=== PATIENT | female | born 1975 | race Two or more races ===

== ENCOUNTER 2020-08-27 13:28 | Outpatient (REF) | payer OTHER, SELFPAY ==
--- NOTE | ~2020-08-27 | XR_ITS ---
EXAMINATION: XR SHOULDER, RIGHT CLINICAL INFORMATION: Mononeuropathy. COMPARISON: None TECHNIQUE: AP external rotation, Grashey, scapular Y, and axillary views of the right shoulder. FINDINGS: The bones and soft tissues are normal. No fracture. Glenohumeral and acromioclavicular alignment is anatomic with normal joint space. No abnormal soft tissue calcifications. XR/XR shoulder RT min 2V IMPRESSION: Unremarkable right shoulder.
[2020-08-27 14:06] LABS: Hematocrit 37.1 % (37-47); Hemoglobin 12.6 g/dl (12.0-16.0); Mean Corpuscular Hemoglobin 30.7 pg (27.0-33.0); Mean Corpuscular Volume 90.5 fL (80-98); Mean Platelet Volume 10.9 fL (9.4-12.3); Platelet Count 333 X10*3/uL (160-400); Red Cell Distribution Width 12.7 % (11.0-16.0); White Blood Count 7.6 X10*3/uL (4.8-10.8)
[2020-08-27 14:50] LABS: Thyroid Stimulating Hormone 0.88 uIU/mL (0.32-4.0)
[2020-08-27 15:08] LABS: Erythrocyte Sedimentation Rate 23 MM/HR (0-20)
[2020-08-27 15:10] LABS: Anion Gap 13 (12-20); Blood Urea Nitrogen 12 mg/dL (9-16); Calcium 8.7 mg/dL (8.4-10.2); Carbon Dioxide 25 mmol/L (22-29); Chloride 105 mmol/L (96-108); Estimated Glomerular Filt Rate > 60; Glucose Random 86 mg/dL (60-115); Sodium 139 mmol/L (135-145)
[2020-09-01 13:22] LABS: Vitamin D 25-OH, D2 <4 ng/mL; Vitamin D 25-OH, D3 46 ng/mL; Vitamin D 25-OH, Total 46 ng/mL (30-100)
== END 2020-08-27 13:29 | disposition home or self-care (01) ==
LOC: HO.LAB 13:28
PROVIDERS: PCP Internal Medicine; Visit Provider Internal Medicine
DX: G58.9 Mononeuropathy, unspecified (principal)
CPT/HCPCS: 36415; 73030; 80048; 82306; 84443; 85027; 85652

== ENCOUNTER → 2020-09-11 13:25 | Outpatient (BNVA) | payer OTHER, SELFPAY | PROVIDERS: PCP Internal Medicine; Visit Provider Physician Assistant | DX: M75.51 Bursitis of right shoulder (principal) | CPT/HCPCS: 20610; J1020 ==

== ENCOUNTER 2020-09-30 18:52 | Outpatient (REF) | payer OTHER, SELFPAY ==
--- NOTE | ~2020-09-30 | MR_ITS ---
EXAMINATION: MR SHOULDER WITHOUT CONTRAST, RIGHT CLINICAL INFORMATION: Right shoulder pain COMPARISON: Radiographs 08/27/2020 TECHNIQUE: MRI of the shoulder without contrast was performed on a high-field scanner. FINDINGS: ROTATOR CUFF: Intact. Subscapularis tendinosis. No muscle atrophy or fatty infiltration. BICEPS: Normal. CORACOACROMIAL ARCH: The undersurface of the acromion is curved with mild spurring laterally. The acromioclavicular joint is normal. LABRUM/CAPSULE: No definite labral tear. The inferior joint capsule is edematous with areas of mild thickening. There is also ill-defined thickening/edema at the rotator cuff interval. These findings suggest adhesive capsulitis. GLENOHUMERAL JOINT/MARROW: Trace glenohumeral joint effusion. MR/MR shoulder RT wo con IMPRESSION: Findings suggestive of adhesive capsulitis. Correlate clinically. No rotator cuff tear. Mild subscapularis tendinosis.
== END 2020-09-30 18:53 | disposition home or self-care (01) ==
LOC: HO.MRI 18:52
PROVIDERS: Visit Provider Physician Assistant
DX: M75.51 Bursitis of right shoulder (principal)
CPT/HCPCS: 73221

== ENCOUNTER → 2020-10-16 14:00 | Outpatient (BNVA) | payer OTHER, SELFPAY | PROVIDERS: PCP Internal Medicine; Visit Provider Physician Assistant ==

== ENCOUNTER 2020-10-24 12:59 | Outpatient (REF) | payer OTHER, SELFPAY ==
--- NOTE | ~2020-10-24 | FL_ITS ---
EXAMINATION: XR ARTHROGRAM SHOULDER, RIGHT CLINICAL INFORMATION: Adhesive capsulitis of right shoulder. Severe right shoulder pain. COMPARISON: None TECHNIQUE: Following explaining right shoulder steroid injection under fluoroscopy procedure, benefits and risk, a written consent was obtained. Patient was placed supine on fluoroscopy table, and anterior aspect of shoulder was cleaned and draped in usual sterile manner. 1% lidocaine was injected at puncture site. A 22-gauge spinal needle was then inserted from the skin into the anterior shoulder joint and 2 mL of nonionic contrast was injected. After confirming contrast in the joint space, 80 mL of Depo-Medrol, 4 mL of 1% lidocaine and 4 mL of 0.25% bupivacaine was injected into the joint space and needle withdrawn. Complete hemostasis achieved at puncture site. Patient tolerated procedure very well without immediate complications. A single image was obtained during exam. FINDINGS: On image obtained of the right shoulder reveals contrast opacifying the glenohumeral joint space. The joint space is maintained normal. No bony erosive changes, loose bodies or fracture seen. FLUOROSCOPY TIME: 0.6 minutes DOSE AREA PRODUCT: 1.255 uGy-m2 (microgray-meter squared) FL/FL arthrogram shoulder RT IMPRESSION: Successful fluoroscopy-guided right shoulder steroid injection performed without immediate complications.
== END 2020-10-24 13:00 | disposition home or self-care (01) ==
LOC: HO.XRAY 12:59
PROVIDERS: Visit Provider Physician Assistant
DX: M75.01 Adhesive capsulitis of right shoulder (principal)
CPT/HCPCS: 23350; 73040

== ENCOUNTER 2020-11-05 13:21 | Outpatient (REF) | payer OTHER, SELFPAY ==
--- NOTE | ~2020-11-05 | XR_ITS ---
EXAMINATION: XR SINUSES CLINICAL INFORMATION: Right-sided facial pain COMPARISON: None TECHNIQUE: 4 views of the paranasal sinuses. FINDINGS: Paranasal sinuses appear clear without air-fluid levels. No fractures are identified. No radiodense foreign bodies. No destructive bony lesions identified. Visualized portions of the mastoid air cells unremarkable. XR/XR sinus min 3V IMPRESSION: No evidence of acute sinusitis.
== END 2020-11-05 13:22 | disposition home or self-care (01) ==
LOC: HO.XRAY 13:21
PROVIDERS: PCP Internal Medicine; Visit Provider Otolaryngology
DX: J32.9 Chronic sinusitis, unspecified (principal)
CPT/HCPCS: 70220

== ENCOUNTER 2020-12-06 12:00 | Outpatient (RCR) | payer OTHER, SELFPAY ==
--- NOTE | 2020-12-06 13:06 | MHC.PT.DC ---
[facility] Office [place] Office [place] Office [address] [phone] F: [phone] F: [phone] F: [phone] F: [phone] Physical Therapy Discharge Report Diagnosis: Mononeuropathy, R shoulder bursitis Date of Surgery: NA Date of Evaluation: 08/20/20 Date of Discharge: 12/06/20 Treatments to Date: 8 Cancellations to Date: 3 No Shows to Date: 0 Discharge Status: Improved Function Independent with HEP Patient Elected to Stop Discharge Summary: 12/06/2020 Emelina has completed 8 visits of PT. She has made improvements with PT but continues to have pain and end range limitations of motion. Due to this patient will follow up with her ortho Dr next week to consider other options. Emelina was offered to continue PT for a few more visits to continue ROM, but she decided she is independent with her HEP and can do her exercises at her gym. Today was Emelina's last visit. Electronically signed by: Camila Hussein, PT, DPT Please sign and return to therapist. Thank you for your referral.
== END 2020-12-06 13:08 | disposition other institution (70) ==
LOC: HO.PT 12:00
PROVIDERS: PCP Internal Medicine; Visit Provider Internal Medicine
DX: G58.9 Mononeuropathy, unspecified (principal)
CPT/HCPCS: 97110; 97112; 97140; 97161

== ENCOUNTER → 2020-12-11 14:32 | Outpatient (BNVA) | payer OTHER, SELFPAY | PROVIDERS: PCP Internal Medicine; Visit Provider Physician Assistant ==

== ENCOUNTER → 2021-03-06 09:39 | Outpatient (BNVA) | payer OTHER, SELFPAY | PROVIDERS: PCP Internal Medicine; Visit Provider Physician Assistant ==

== ENCOUNTER 2021-03-24 16:31 | Outpatient (REF) | payer OTHER, SELFPAY ==
--- NOTE | ~2021-03-24 | MR_ITS ---
EXAMINATION: MR CERVICAL SPINE WITHOUT CONTRAST CLINICAL INFORMATION: Monitor neuropathy, unspecified. COMPARISON: None available. TECHNIQUE: MRI of the cervical spine was performed using routine sequences without contrast. FINDINGS: The cervical vertebral bodies maintain normal heights. There is mild disc height loss at C5-C6 and C6-C7. Endplate edema is seen superiorly at C7. The cervical cord signal appears normal. A few bilateral perineural cysts are noted. The imaged portions of the intracranial contents appear normal. The extraspinal soft tissues appear normal. SPINAL LEVELS: C2-C3: No posterior disc abnormality. No spinal canal or neural foraminal stenosis. C3-C4: Mild disc bulging. No spinal canal or neural foraminal stenosis. C4-C5: Mild disc bulging. No spinal canal or neural foraminal stenosis. C5-C6: Disc bulging asymmetric to the left with uncovertebral hypertrophy. Mild narrowing of the left neural foramen. No spinal canal stenosis. C6-C7: Disc bulging. No spinal canal or neural foraminal stenosis. C7-T1: No posterior disc abnormality. No spinal canal or neural foraminal stenosis. MR/MR cervical spine wo con IMPRESSION: Mild degenerative spondylotic changes. No significant narrowing of the spinal canal or neural foramina. Endplate edema is seen superiorly at C7.
== END 2021-03-24 16:32 | disposition home or self-care (01) ==
LOC: HO.MRI 16:31
PROVIDERS: PCP Internal Medicine; Visit Provider Physician Assistant
DX: G58.9 Mononeuropathy, unspecified (principal)
CPT/HCPCS: 72141

== ENCOUNTER 2021-05-05 14:37 | Outpatient (REF) | payer OTHER, SELFPAY ==
--- NOTE | ~2021-05-05 | MM_ITS ---
EXAMINATION: MM SCREENING DIGITAL BREAST TOMOSYNTHESIS, BILATERAL CLINICAL INFORMATION: Screening. Asymptomatic. Age 45. No prior breast imaging. The lifetime risk of breast cancer based on the Tyrer-Cuzick Model is 18%. COMPARISON: None (current study represents initial baseline exam). TECHNIQUE: Digital breast tomosynthesis is performed in both the craniocaudal and mediolateral oblique views along with computer-aided detection (CAD). Synthesized 2D images are generated from the tomosynthesis. Technologist notes compression challenging for patient. Exam tailored to patient capabilities. Additional bilateral exaggerated CC views are obtained. FINDINGS: The breasts are extremely dense, which lowers the sensitivity of mammography (ACR BI-RADS breast composition Category d). There are no significant masses, abnormal calcifications, or other abnormalities. The axilla and skin contours are unremarkable. MM/MM tomosynthesis screening BI IMPRESSION: No mammographic evidence of malignancy. ASSESSMENT: BI-RADS 1: Negative RECOMMENDATION: Routine annual mammography screening. This patient's information was entered into a reminder system with a target due date for their next mammogram.
== END 2021-05-05 14:38 | disposition home or self-care (01) ==
LOC: HO.MAMMO 14:37
PROVIDERS: Visit Provider Internal Medicine
DX: Z12.31 Encounter for screening mammogram for malignant neoplasm of breast (principal)
CPT/HCPCS: 77063; 77067

== ENCOUNTER → 2021-05-30 12:40 | Outpatient (BNVA) | payer OTHER, SELFPAY | PROVIDERS: PCP Internal Medicine; Visit Provider Nurse Practitioner Family | DX: M54.2 Cervicalgia (principal); M79.18 Myalgia, other site; M75.01 Adhesive capsulitis of right shoulder | CPT/HCPCS: 20552; J3300 ==

== ENCOUNTER 2022-05-01 09:37 | Outpatient (REF) | payer BC, SELFPAY ==
--- NOTE | ~2022-05-01 | XR_ITS ---
EXAMINATION: XR LUMBOSACRAL SPINE CLINICAL INFORMATION: Low back pain. COMPARISON: None TECHNIQUE: Three views of the lumbosacral spine. FINDINGS: Some minimal degenerative changes are present with some subtle narrowing of the L4-L5 disc space. No significant osteophytes are seen. No fractures or subluxations. Mild sclerotic change at the SI joints. XR/XR lumbar spine 2-3V IMPRESSION: Mild degenerative changes as described above.
[2022-05-01 09:56] LABS: MANUAL DIFF FLAG NO
[2022-05-01 10:29] LABS: Basophils Percent Auto 0.6 % (0-2); Eosinophils Absolute Auto 0.2 X10*3/uL (0.0-0.4); Eosinophils Percent Auto 3.7 % (0-4); Hematocrit 38.4 % (37.0-47.0); Imm Gran Abs Auto 0.02 X10*3/uL (0.00-0.03); Imm Gran Pct Auto 0.4 % (0.0-0.4); Lymphocytes Absolute Auto 1.2 X10*3/uL (1.2-4.9); Lymphocytes Percent Auto 22.5 % (20-40); Mean Corpuscular HGB Conc 33.9 g/dl (31.0-35.0); Mean Corpuscular Hemoglobin 31.4 pg (27.0-33.0); Mean Corpuscular Volume 92.8 fL (80.0-98.0); Mean Platelet Volume 11.3 fL (9.4-12.3); Monocytes Absolute Auto 0.3 X10*3/uL (0.1-1.2); Monocytes Percent Auto 6.2 % (2-11); Neutrophils Absolute Auto 3.4 x10*3/uL (2.0-8.3); Neutrophils Percent Auto 66.6 % (45-73); Platelet Count 246 X10*3/uL (160-400); Red Blood Count 4.14 X10*6/uL (4.20-5.50); Red Cell Distribution Width 12.6 % (11.0-16.0); White Blood Count 5.2 X10*3/uL (4.8-10.8)
[2022-05-01 11:04] LABS: Alanine Aminotransferase 13 U/L (0-31); Albumin Level 4.2 g/dL (3.5-5.0); Alkaline Phosphatase 67 U/L (39-117); Anion Gap 15 (12-20); Aspartate Amino Transferase 18 U/L (5-31); Bilirubin Total 0.6 mg/dL (0.0-1.0); Blood Urea Nitrogen 11 mg/dL (9-16); Calcium 8.7 mg/dL (8.4-10.2); Carbon Dioxide 23 mmol/L (22-29); Chloride 106 mmol/L (96-108); Estimated Glomerular Filt Rate > 60; Glucose Fasting 86 mg/dL (60-99); Iron 79 mcg/dL (30-160); Percent Iron Saturation 26 % (15-50); Potassium 4.2 mmol/L (3.3-5.1); Rheumatoid Factor < 15.0 IU/mL (<15.0); Sodium 140 mmol/L (135-145); Total Iron Binding Capacity 303 mcg/dL (228-428); Total Protein 6.9 g/dL (6.5-8.0); Unsaturated Iron Binding 224 ug/dL
[2022-05-01 11:21] LABS: Thyroid Stimulating Hormone 0.72 uIU/mL (0.32-4.0)
[2022-05-01 11:33] LABS: Erythrocyte Sedimentation Rate 14 MM/HR (0-20)
[2022-05-01 12:45] LABS: Vitamin D 25-OH Total 61.1 ng/mL (>30)
[2022-05-04 22:26] LABS: CRP High Sensitivity 1.7 mg/L
[2022-05-05 03:02] LABS: Lyme Abs Screen <0.90 index
[2022-05-05 14:32] LABS: Cyclic Citrullinated Peptide <16 UNITS
== END 2022-05-01 09:38 | disposition home or self-care (01) ==
LOC: HO.LAB 09:37
PROVIDERS: Visit Provider Internal Medicine
DX: M54.50 Low back pain, unspecified (principal); E55.9 Vitamin D deficiency, unspecified; R53.83 Other fatigue; M25.50 Pain in unspecified joint; D64.9 Anemia, unspecified
CPT/HCPCS: 36415; 72100; 80053; 82306; 83540; 84443; 85025; 85652; 86141; 86200; 86431; 86617; 86618

== ENCOUNTER 2022-05-21 16:36 | Outpatient (REF) | payer BC, SELFPAY ==
--- NOTE | ~2022-05-21 | CT_ITS ---
EXAMINATION: CT MAXILLOFACIAL WITHOUT CONTRAST CLINICAL INFORMATION: Sinonasal polyp, deviated septum COMPARISON: None TECHNIQUE: Multidetector helical imaging was performed in the axial plane using landmarks protocol with generation of coronal and sagittal reformatted images. This CT examination was performed using dose optimization techniques as appropriate, variously including the following: *Automated exposure control *Adjustment of mA and/or kV according to patient size (this includes techniques or standardized protocols for targeted exams where dose is matched to indication/reason for exam; i.e. extremities or head) *Use of iterative reconstruction technique DLP: 145 mGy-cm FINDINGS: FRONTAL SINUSES AND DRAINAGE PATHWAYS: The frontal sinuses are clear. The frontal recesses are patent. MAXILLARY SINUSES AND DRAINAGE PATHWAYS: Trace mucosal thickening in the left alveolar recess and along the superior medial wall the right maxillary sinus. The maxillary ostia and infundibula are patent. ETHMOID SINUSES: The ethmoid air cells are clear. The ethmoid roofs appear intact and are asymmetric, left higher than right. SPHENOID SINUS AND DRAINAGE PATHWAYS: The sphenoid sinus is clear.. The sphenoid ostia and sphenoethmoidal recesses are patent. NASAL PASSAGE: The nasal passages are clear. The osseous nasal septum remains midline. There is a small leftward projecting osseous spur along the base of the left middle turbinate. ADDITIONAL RELEVANT FINDINGS: The lamina papyracea are intact. Chronic depressed fracture of the floor of the right orbit with herniation of extraconal fat. The carotid canals are normally covered by bone. Small periapical lucency involving the anterior buckle root of the left maxillary first molar. The temporomandibular joints are normal. The mastoid air cells and middle ear cavities are well aerated. Limited evaluation of the intracranial structures without significant abnormalities. CT/CT sinus wo IV con IMPRESSION: 1. No active sinus disease. 2. Chronic right orbital floor fracture
== END 2022-05-21 16:37 | disposition home or self-care (01) ==
LOC: HO.CT 16:36
PROVIDERS: Visit Provider Otolaryngology
DX: J33.0 Polyp of nasal cavity (principal); J34.2 Deviated nasal septum
CPT/HCPCS: 70486

== ENCOUNTER → 2022-06-24 10:41 | Outpatient (BNVA) | payer BC, SELFPAY | PROVIDERS: PCP Internal Medicine; Visit Provider Student in an Organized Health Care Education/Training Program | DX: M79.18 Myalgia, other site (principal) ==

== ENCOUNTER 2022-06-24 12:12 | Outpatient (REF) | payer BC, SELFPAY ==
[2022-06-24 12:34] LABS: MANUAL DIFF FLAG NO
[2022-06-24 13:01] LABS: Basophils Absolute Auto 0.1 X10*3/uL (0.0-0.2); Basophils Percent Auto 0.6 % (0-2); Eosinophils Absolute Auto 0.2 X10*3/uL (0.0-0.4); Eosinophils Percent Auto 1.8 % (0-4); Hematocrit 44.9 % (37.0-47.0); Hemoglobin 14.9 g/dl (12.0-16.0); Imm Gran Abs Auto 0.04 X10*3/uL (0.00-0.03); Imm Gran Pct Auto 0.5 % (0.0-0.4); Lymphocytes Percent Auto 22.7 % (20-40); Mean Corpuscular HGB Conc 33.2 g/dl (31.0-35.0); Mean Corpuscular Hemoglobin 30.2 pg (27.0-33.0); Mean Corpuscular Volume 90.9 fL (80.0-98.0); Mean Platelet Volume 10.5 fL (9.4-12.3); Monocytes Absolute Auto 0.6 X10*3/uL (0.1-1.2); Monocytes Percent Auto 7.4 % (2-11); Neutrophils Absolute Auto 5.8 x10*3/uL (2.0-8.3); Platelet Count 409 X10*3/uL (160-400); Red Blood Count 4.94 X10*6/uL (4.20-5.50); Red Cell Distribution Width 12.7 % (11.0-16.0); White Blood Count 8.7 X10*3/uL (4.8-10.8)
[2022-06-24 13:46] LABS: Alanine Aminotransferase 17 U/L (0-31); Albumin Level 4.7 g/dL (3.5-5.0); Alkaline Phosphatase 88 U/L (39-117); Anion Gap 15 (12-20); Aspartate Amino Transferase 20 U/L (5-31); Bilirubin Total 0.7 mg/dL (0.0-1.0); Blood Urea Nitrogen 18 mg/dL (9-16); C Reactive Protein 0.14 mg/dL (< or = 0.50); Calcium 9.9 mg/dL (8.4-10.2); Carbon Dioxide 22 mmol/L (22-29); Chloride 103 mmol/L (96-108); Estimated Glomerular Filt Rate > 60; Glucose Random 88 mg/dL (60-115); Potassium 4.8 mmol/L (3.3-5.1); Sodium 135 mmol/L (135-145); Total Protein 7.9 g/dL (6.5-8.0)
[2022-06-24 13:53] LABS: Erythrocyte Sedimentation Rate 16 MM/HR (0-20)
[2022-06-24 14:03] LABS: TSH reflex Free T4 1.12 uIU/mL (0.32-4.0)
[2022-06-24 14:20] LABS: Appearance Urine Clear; Color Urine Yellow; Glucose Urine UA Negative (Negative); Leukocyte Esterase Urine Negative (Negative); Nitrite Urine Negative (Negative); PH 5.5 (5.0-9.0); Specific Gravity - Urine 1.025 (1.005-1.025); Urine Blood Negative (Negative); Urine Ketones Negative (Negative); Urine Protein Negative (Neg-Trace)
[2022-06-24 14:24] LABS: Creatinine Urine 149.51 mg/dL; Protein/Creatinine Ratio, Ur 0.09 (<0.2); Total Protein Urine Random 14 mg/dL (<12)
[2022-06-24 14:28] LABS: Bacteria Urine None Seen (None Seen); Hyaline Casts Urine 0-2 /LPF (0-2); Squamous Epithelial Cell Urine 0-2 /HPF (0-2); WBC Urine 0-5 /HPF (0-5)
[2022-06-25 14:09] LABS: Anti DNA DS Antibody 1 IU/mL; Antibody to SS-A Antigen <1.0 NEG AI (<1.0 NEG); Antibody to SS-B Antigen <1.0 NEG AI (<1.0 NEG); SM/Ribonucleoprotein Ab <1.0 NEG AI (<1.0 NEG); Smith Protein <1.0 NEG AI (<1.0 NEG)
[2022-06-25 19:48] LABS: Complement C3 108 mg/dL (83-193)
[2022-06-25 23:28] LABS: Prot Elec - Albumin 4.6 g/dL (3.8-4.8); Prot Elec - Alpha1 0.3 g/dL (0.2-0.3); Prot Elec - Alpha2 0.8 g/dL (0.5-0.9); Prot Elec - Beta 1 0.5 g/dL (0.4-0.6); Prot Elec - Beta 2 0.4 g/dL (0.2-0.5); Prot Elec - Gamma 1.1 g/dL (0.8-1.7); Prot Elec - Total Protein 7.7 g/dL (6.1-8.1)
[2022-06-26 14:08] LABS: Cardiolipin IgG Ab <2.0 GPL-U/mL
[2022-06-27 15:23] LABS: Anti Nuclear Antibody Screen POSITIVE (NEGATIVE)
[2022-06-29 06:24] LABS: PTT (LAC) Screen 30 sec (<=40)
[2022-06-29 16:14] LABS: DNAds, Crithidia Antibody Negative (Negative)
[2022-06-30 16:24] LABS: Beta-2 Glycoprotein IgA <2.0 U/mL (<20.0); Beta-2 Glycoprotein IgG <2.0 U/mL (<20.0); Beta-2 Glycoprotein IgM 3.4 U/mL (<20.0)
== END 2022-06-24 12:13 | disposition home or self-care (01) ==
LOC: HO.10HDL 12:12
PROVIDERS: Visit Provider Student in an Organized Health Care Education/Training Program
DX: M32.9 Systemic lupus erythematosus, unspecified (principal)
CPT/HCPCS: 36415; 80053; 81001; 84156; 84165; 84443; 85025; 85597; 85613; 85652; 85730; 86038; 86039; 86140; 86146; 86147; 86160; 86225; 86235; 86255

== ENCOUNTER → 2022-07-31 09:34 | Outpatient (BNVA) | payer BC, SELFPAY | PROVIDERS: PCP Internal Medicine; Visit Provider Student in an Organized Health Care Education/Training Program | DX: Z13.89 Encounter for screening for other disorder (principal) ==

== ENCOUNTER 2022-08-07 09:52 | Outpatient (REF) | payer BC, SELFPAY ==
--- NOTE | ~2022-08-07 | US_ITS ---
EXAMINATION: US PELVIS CLINICAL INFORMATION: Pelvic and perineal pain. COMPARISON: None. TECHNIQUE: Ultrasound of the pelvis is performed using both transabdominal and transvaginal transducers along with Doppler. Transvaginal imaging is performed due to inadequate visualization transabdominally. FINDINGS: UTERUS: The uterus is not seen. The cervix appeared unremarkable. There is a history of a partial hysterectomy in 2019. ADNEXA: The right ovary could not be seen. The left ovary appeared normal at 2.6 x 2.2 x 1.7 cm for a volume of 5 mL. No free fluid was present. US/US pelvic and transvaginal IMPRESSION: Status post hysterectomy. The right ovary was not seen, the left ovary appeared normal.
== END 2022-08-07 09:53 | disposition home or self-care (01) ==
LOC: HO.HMGCX 09:52
PROVIDERS: PCP Internal Medicine; Visit Provider Internal Medicine
DX: R10.2 Pelvic and perineal pain (principal)
CPT/HCPCS: 76830; 76856

== ENCOUNTER 2022-08-27 10:17 | Outpatient (REF) | payer BC, SELFPAY ==
--- NOTE | ~2022-08-27 | CT_ITS ---
EXAMINATION: CT CHEST WITHOUT CONTRAST CLINICAL INFORMATION: Solitary pulmonary nodule. COMPARISON: None TECHNIQUE: Multidetector volumetric CT imaging of the chest was done. Axial MIP volume rendering provided. Sagittal and coronal reformatted images were obtained. This CT examination was performed using dose optimization techniques as appropriate, variously including the following: *Automated exposure control *Adjustment of mA and/or kV according to patient size (this includes techniques or standardized protocols for targeted exams where dose is matched to indication/reason for exam; i.e. extremities or head) *Use of iterative reconstruction technique DLP: 129 mGy-cm FINDINGS: LUNGS: There are scattered noncalcified micronodules measuring less than 3 mm. MEDIASTINUM: No mediastinal adenopathy. There is amorphous density in the anterior mediastinum consistent with residual thyroid tissue. CORONARY ARTERY CALCIFICATION: None. PLEURA: There is no pleural effusion. No pleural mass or thickening. AXILLA: No lymphadenopathy. UPPER ABDOMEN: Unremarkable. OSSEOUS STRUCTURES: No suspicious osseous lesions. CT/CT chest wo IV con IMPRESSION: Scattered pulmonary micronodules. 2017 Fleischner Society Recommendations for Lung Nodule(s): Follow-Up based on size (average of long- and short-axis diameters). Use most suspicious nodule for followup. Multiple Solid lung nodules < 6 mm: Follow up management based on most suspicious nodule. In a low-risk patient, no routine follow-up imaging is recommended. In a high-risk patient, a non-contrast Chest CT at 12 months is optional. If performed and the nodule is stable at 12 months, no further follow-up is recommended. These guidelines do not apply to patients younger than 35 years, immunocompromised patients, and patients with cancer. Follow up in patients with significant comorbidities as clinically warranted. For lung cancer screening, adhere to Lung-RADS guidelines. Reference: Radiology. 2017 Herrera; 284(1):228-243 Fleischner guidelines were followed.
== END 2022-08-27 10:18 | disposition home or self-care (01) ==
LOC: HO.CT 10:17
PROVIDERS: Visit Provider Internal Medicine
DX: R91.1 Solitary pulmonary nodule (principal)
CPT/HCPCS: 71250

== ENCOUNTER 2022-09-04 14:08 | Outpatient (REF) | payer BC, SELFPAY ==
[2022-09-04 17:40] LABS: Urine Cytology See Pathology rpt
== END 2022-09-04 14:09 | disposition home or self-care (01) ==
LOC: HO.LAB 14:08
PROVIDERS: PCP Internal Medicine; Visit Provider Nurse Practitioner Family
DX: R31.29 Other microscopic hematuria (principal); R35.0 Frequency of micturition
CPT/HCPCS: 88112

== ENCOUNTER → 2022-09-07 14:58 | Outpatient (BNVA) | payer BC, SELFPAY | PROVIDERS: PCP Internal Medicine; Visit Provider Physician Assistant | DX: Z13.89 Encounter for screening for other disorder (principal) ==

== ENCOUNTER 2022-09-14 12:25 | Outpatient (REF) | payer BC, SELFPAY | END 2022-09-14 12:26 | disposition home or self-care (01) | LOC: HO.LNP 12:25 | PROVIDERS: Visit Provider Physician Assistant | DX: A04.8 Other specified bacterial intestinal infections (principal) | CPT/HCPCS: 87338 ==

== ENCOUNTER → 2022-10-02 15:09 | Outpatient (BNVA) | payer BC, SELFPAY | PROVIDERS: PCP Internal Medicine; Visit Provider Hospitalist | DX: Z13.89 Encounter for screening for other disorder (principal) ==

== ENCOUNTER 2022-10-12 15:59 | Outpatient (REF) | payer BC, SELFPAY ==
[2022-10-12 16:18] LABS: MANUAL DIFF FLAG NO
[2022-10-12 17:59] LABS: Basophils Percent Auto 0.5 % (0-2); Eosinophils Absolute Auto 0.2 X10*3/uL (0.0-0.4); Eosinophils Percent Auto 2.8 % (0-4); Hematocrit 39.1 % (37.0-47.0); Hemoglobin 13.1 g/dl (12.0-16.0); Imm Gran Abs Auto 0.02 X10*3/uL (0.00-0.03); Imm Gran Pct Auto 0.3 % (0.0-0.4); Lymphocytes Absolute Auto 1.8 X10*3/uL (1.2-4.9); Lymphocytes Percent Auto 23.1 % (20-40); Mean Corpuscular HGB Conc 33.5 g/dl (31.0-35.0); Mean Corpuscular Hemoglobin 30.3 pg (27.0-33.0); Mean Corpuscular Volume 90.3 fL (80.0-98.0); Monocytes Absolute Auto 0.5 X10*3/uL (0.1-1.2); Monocytes Percent Auto 6.9 % (2-11); Neutrophils Absolute Auto 5.2 x10*3/uL (2.0-8.3); Neutrophils Percent Auto 66.4 % (45-73); Platelet Count 327 X10*3/uL (160-400); Red Blood Count 4.33 X10*6/uL (4.20-5.50); Red Cell Distribution Width 12.5 % (11.0-16.0); White Blood Count 7.8 X10*3/uL (4.8-10.8)
[2022-10-12 18:31] LABS: Anion Gap 12 (12-20); Blood Urea Nitrogen 14 mg/dL (9-16); Calcium 8.8 mg/dL (8.4-10.2); Carbon Dioxide 26 mmol/L (22-29); Chloride 105 mmol/L (96-108); Estimated Glomerular Filt Rate > 60; Glucose Random 75 mg/dL (60-115); Sodium 139 mmol/L (135-145)
[2022-10-12 18:36] LABS: Erythrocyte Sedimentation Rate 16 MM/HR (0-20)
[2022-10-15 19:53] LABS: IgA 245 mg/dL (47-310); IgG 1234 mg/dL (600-1640); IgM 101 mg/dL (50-300)
[2022-10-16 00:34] LABS: Immunoglobulin E 62 kU/L (<OR=114)
[2022-10-26 12:43] LABS: Immunoglobulin G Subclass 1 537 mg/dL (382-929); Immunoglobulin G Subclass 2 362 mg/dL (241-700); Immunoglobulin G Subclass 3 49 mg/dL (22-178); Immunoglobulin G Subclass 4 16.1 mg/dL (4-86); Immunoglobulin G Total 1023 mg/dL (600-1640)
== END 2022-10-12 16:00 | disposition home or self-care (01) ==
LOC: HO.LAB 15:59
PROVIDERS: PCP Internal Medicine; Visit Provider Hospitalist
DX: J45.909 Unspecified asthma, uncomplicated (principal); R06.00 Dyspnea, unspecified
CPT/HCPCS: 36415; 80048; 82784; 82785; 85025; 85652

== ENCOUNTER 2022-11-06 11:00 | Outpatient (REF) | payer BC, SELFPAY ==
--- NOTE | 2022-11-06 12:00 | PFT_ITS ---
FLOWS: 1. FEV1 85% of predicted at 2.49 L. 2. FVC 75% of predicted at 2.76 L. 3. FEV1 to FVC ratio of 0.90. 4. No bronchodilator response. LUNG VOLUMES: 1. Total lung capacity 82% of predicted at 4.17 L. 2. Residual volume 88% of predicted at 1.50 L. 3. Slow vital capacity 79% of predicted at 2.67 L. 4. Expiratory reserve volume 67% of predicted at 0.75 L. 5. Diffusion capacity is normal. IMPRESSION: No obstructive or restrictive ventilatory defect. No bronchodilator response. Essentially normal pulmonary function test. Og Nicole MD AP/MODL / [id number]
== END 2022-11-06 11:01 | disposition home or self-care (01) ==
LOC: HO.RESP 11:00
PROVIDERS: PCP Internal Medicine; Visit Provider Hospitalist
DX: R06.00 Dyspnea, unspecified (principal)
CPT/HCPCS: 94010; 94727; 94729

== ENCOUNTER 2022-12-02 13:35 | Outpatient (REF) | payer BC, SELFPAY ==
--- NOTE | ~2022-12-02 | MM_ITS ---
EXAMINATION: MM SCREENING DIGITAL BREAST TOMOSYNTHESIS, BILATERAL CLINICAL INFORMATION: Screening. Asymptomatic. The lifetime risk of breast cancer based on the Tyrer-Cuzick Model is 17%. COMPARISON: Mammography: 05/05/2021 (baseline) TECHNIQUE: Digital breast tomosynthesis is performed in both the craniocaudal and mediolateral oblique views along with computer-aided detection (CAD). Synthesized 2D images are generated from the tomosynthesis. FINDINGS: The breasts are extremely dense, which lowers the sensitivity of mammography (ACR BI-RADS breast composition Category d). There are no significant masses, abnormal calcifications, or other abnormalities. No architectural abnormality. The axilla and skin contours are unremarkable. MM/MM tomosynthesis screening BI IMPRESSION: No mammographic evidence of malignancy. ASSESSMENT: BI-RADS 1: Negative RECOMMENDATION: -Routine annual mammography screening. -Patient may benefit from additional adjunct screening with ultrasound, given the dense breast parenchymal pattern. This patient's information was entered into a reminder system with a target due date for their next mammogram.
== END 2022-12-02 13:36 | disposition home or self-care (01) ==
LOC: HO.MAMMO 13:35
PROVIDERS: PCP Internal Medicine; Visit Provider Internal Medicine
DX: Z12.31 Encounter for screening mammogram for malignant neoplasm of breast (principal)
CPT/HCPCS: 77063; 77067

== ENCOUNTER 2023-03-17 10:31 | Outpatient (REF) | payer BC, SELFPAY | END 2023-03-17 10:32 | disposition home or self-care (01) | LOC: HO.LAB 10:31 | PROVIDERS: PCP Internal Medicine; Visit Provider Otolaryngology | DX: J30.89 Other allergic rhinitis (principal) | CPT/HCPCS: 36415; 82785; 86003 ==

== ENCOUNTER 2023-03-19 10:40 | Day surgery (SDC) | payer BC, SELFPAY ==
[2023-03-17 15:14] VITALS: BMI 23.3
[2023-03-19 12:50] VITALS: BMI 23.3
--- NOTE | 2023-03-19 12:52 | MHC.SHP ---
Pre-Procedural Eval Section A Date of Service: 03/19/23 The patient is an INPATIENT: No The History & Physical has been completed within 30 days and I have reviewed it.: No Section B Chief Complaint: screening, constipation, dyspepsia, bloating Relevant Family History (Specify if Yes): No Relevant Social History: None Present Medications: see Short Stay Collaborative assessment Medical History: Significant History (Hx of malignant fibrous histiocytoma Reactive airway disease) History of Previous Operations: Relevant previous surgery/procedure and date(s) (H/O: hysterectomy History of ) Allergies: Allergies Allergy/AdvReac Type Severity Reaction Status Date / Time peanut Allergy Severe Anaphylaxis Verified 10/02/22 15:15 shellfish derived Allergy Severe Skin rash Verified 10/02/22 15:15 Review of Systems Sugical H&P ROS: Negative: Constitution, Cardiovascular and Respiratory and Yes, Specify: Gastrointestinal (dyspepsia, constipation) Exam Surgical H&P Exam: Normal: Heart, Normal: Lungs, Normal: Extremities and Normal: Abdomen Plan Diagnosis/Plan: Unchanged I have reviewed the history and physical and performed a pertinent physical examination on my patient. No changes have occurred unless specified. Time Spent With Patient Time: Total time managing care of this patient today ____ minutes.
[2023-03-19 12:54] VITALS: BMI 23.3
[2023-03-19] MEDS: Lactated Ringers 1,000 ML 50 ML IVCONT (13:17)
--- NOTE | 2023-03-19 13:41 | HO.ANESPROP2 ---
[facility] Active Problems Active Problems: All Active Problems (Updated 10/04/22 @ 22:47 by Jaquan Suarez MD) Pulmonary nodules (Acute) Myalgic encephalomyelitis/chronic fatigue syndrome (Acute) Long COVID (Acute) Dyspnea (Acute) Dyspepsia (Acute) Chronic constipation (Acute) Urinary frequency (Acute) Pelvic pain (Acute) Fibromyalgia, primary (Acute) Lung nodule seen on imaging study (Acute) Abdominal pain (Acute) Pelvic pain (Acute) Physical exam (Acute) Microscopic hematuria (Acute) Lumbar pain (Acute) Polyarthralgia (Acute) Skin lesion (Acute) Fatigue (Acute) Otitis externa of left ear (Acute) Asthma (Acute) Myofascial pain (Acute) Cervicalgia (Acute) Reactive airway disease (Acute) Adhesive capsulitis of right shoulder (Acute) Subacromial bursitis of right shoulder joint (Acute) Entrapment neuropathy (Acute) Past Medical History Medical History (Updated 10/04/22 @ 22:47 by Jaquan Suarez MD) Pulmonary nodules Myalgic encephalomyelitis/chronic fatigue syndrome Long COVID Dyspnea Reactive airway disease Hx of malignant fibrous histiocytoma Family History Family History Mother High blood pressure Father Dementia Mental health disorder Paternal Aunt Lupus Family history of problems with anesthesia: No Surgical History Surgical History History of H/O: hysterectomy History of Problems with Anesthesia: No Social History Social History Housing: Condominium Alcohol intake: current Alcohol intake frequency: holidays/special occasions only Patient Tobacco Use Status: Never used Tobacco e-Cigarette/Vaping Use: Never Used Second Hand Smoke Exposure: No Use of substances other than those prescribed or required for medical reasons: No Are you DNR?: No Advance Directives: No Advance Directives Information Provided: Yes service: No Current occupational status: employed 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 Current occupational exposures/hazards: No Cognitive needs: No Hearing needs: No Vision needs: No Meds Allergies Allergy/AdvReac Type Severity Reaction Status Date / Time peanut Allergy Severe Anaphylaxis Verified 10/02/22 15:15 shellfish derived Allergy Severe Skin rash Verified 10/02/22 15:15 Active Medications: Current Medications Lactated Ringer's (Lr) 1,000 mls @ 50 mls/hr IVCONT .Q20H WALI Last Admin: 03/19/23 13:17 Dose: 50 mls/hr Home Medications Medication Instructions Recorded Confirmed Last Taken Type nebulizers 10/02/22 Unknown History Exam Exam Date and Time: March 19, 2023 1341 Height,Weight and Vital Signs: Height 5 ft 4 in Weight 61.689 kg Airway Mallampati Class: II TM Dist: >3cm Neck ROM: Full Heart: rrr Lungs: cta Assessment and Plan Assessment Anesthesia Assessment: Anesthesia Plan Discussed and Chart Reviewed Final Anesthetic Review Family History of Problems with Anesthesia: No History of Problems with Anesthesia: No NPO: Yes ASA Class: II Final Preanesthetic Review: No Changes in Pt Med Stat, Meds/Allgs Chart Reviewed and Consent Obtained/Reviewed Patient Risk: Intermediate Procedure Risk: Intermediate Anesthetic Plan Anesthetic Plan: MAC: Disposition: Standard PACU
--- NOTE | 2023-03-19 13:45 | W.PM.OPN ---
Operative Note Operative Note Date of Service: 03/19/23 Narrative: FLEXIBLE TRANSORAL UPPER GASTROINTESTINAL ENDOSCOPY WITH BIOPSIES AND COLONOSCOPY TILL CECUM WITH BIOPSIES Pre-op diagnosis: Colon cancer screening, chronic constipation, dyspepsia, abdominal bloating Post-op diagnosis: Gastritis, small hiatal hernia, diverticulosis? Endoscopist:? Shantel Castillo MD Anesthesia:?MAC UPPER ENDOSCOPY Consent: Indications for the procedure and potential complications of bleeding, perforation, reaction to medications and missed diagnosis were discussed with the patient and informed consent was obtained. Instrument: Olympus GIF H 190 mid size upper endoscope Monitoring: Vital signs and clinical assessment, continuous EKG monitoring, Pulse oximetry, Carbon Dioxide monitoring and blood pressure monitoring were done throughout the procedure. Procedure: The patient was placed in the left lateral decubitis position and pre-procedure medications were administered and a bite block was placed. The endoscope was inserted into the mouth and advanced under direct vision to the third part of duodenum. A careful inspection was made as the upper endoscope was withdrawn including a retroflexed examination of the proximal stomach; Findings and interventions are described below. Findings: Larynx: Normal Esophagus: GE junction at 34 cms, small hiatal hernia 34 to 36 cms. No esophagitis or Pelaez's. Stomach: Mild gastric erythema. Biopsies were obtained. Grade 2 flap valve on retroflexed examination of the cardia.. Duodenum: Normal bulb and descending duodenum Biopsies were obtained from 3rd part of the duodenum to check for celiac sprue. Intervention: Biopsies as noted above COLONOSCOPY PROCEDURE NOTE Consent: Indications for the procedure and potential complications of bleeding, perforation, reaction to medications and missed diagnosis were discussed with the patient and informed consent was obtained. Instrument: Olympus PCF H 190 L variable stiffness pediatric colonoscope Monitoring: Vital signs and clinical assessment, intermittent blood pressure monitoring, continuous EKG monitoring, Pulse oximetry and Carbon Dioxide monitoring were done throughout the procedure. Colon withdrawl time was 13 minutes. Procedure: The patient was placed in the left lateral decubitis position and pre-procedure medications were administered. After a digital rectal examination of the ano-rectum, the video colonoscope was inserted into the rectum and advanced through the colon to the cecum. The colonoscope was slowly withdrawn in a retrograde panoramic fashion and the colon mucosa was carefully examined including a retroflexed view of the rectum. Findings and interventions are described below. Procedure Difficulty: Colon was long and tortuous and there was some loop formation. No maneuvers were required Findings: Terminal Ileum: Not evaluated Cecum: Normal Ascending Colon: Normal Transverse Colon: Normal Descending Colon: Normal Sigmoid Colon: Moderate diverticulosis Rectum: Patchy erythema in the distal rectum - biopsies obtained to check for proctitis Ano-rectum: Normal Colon preparation: Good Impression and Post Procedure Diagnosis: Endoscopy Findings: ESOPHAGUS: Small hiatal hernia STOMACH: Gastritis DUODENUM: Normal - biopsied to check for celiac sprue Colonoscopy Findings: No polyps were detected. Patchy erythema in the distal rectum - biopsies obtained to check for proctitis Moderate diverticulosis seen in the sigmoid colon Plan: Await pathology results Patient has an appointment on 04/01/23 in the GI Clinic with QUIN Simpson. Repeat Colonoscopy in 10 years. Above findings were reviewed with the patient and Gastritis and diverticulosis handouts were given in the discharge area
[2023-03-19 14:46] VITALS: BP 100/60; PULSE 68; RESP 20; TEMP 36.2; O2SAT 100
[2023-03-19 15:01] VITALS: BP 99/80; PULSE 68; RESP 20; TEMP 37; O2SAT 99
== END 2023-03-19 15:20 | disposition home or self-care (01) ==
PROVIDERS: PCP Internal Medicine; Visit Provider Internal Medicine Gastroenterology
PROC: (CPT 45380; principal; 2023-03-19 12:40)
DX: Z12.11 Encounter for screening for malignant neoplasm of colon (principal); K57.30 Diverticulosis of large intestine without perforation or abscess without bleeding; K56.2 Volvulus; K29.70 Gastritis, unspecified, without bleeding; K44.9 Diaphragmatic hernia without obstruction or gangrene; K59.09 Other constipation; J45.909 Unspecified asthma, uncomplicated; Z79.899 Other long term (current) drug therapy; Z90.710 Acquired absence of both cervix and uterus
CPT/HCPCS: 45380; 43239; 88305; 88342

== ENCOUNTER → 2023-03-19 10:40 | Outpatient (BNV) | payer BC, SELFPAY | PROVIDERS: PCP Internal Medicine; Visit Provider Internal Medicine Gastroenterology | DX: Z12.11 Encounter for screening for malignant neoplasm of colon (principal); K59.04 Chronic idiopathic constipation; K30 Functional dyspepsia; K29.70 Gastritis, unspecified, without bleeding; K57.30 Diverticulosis of large intestine without perforation or abscess without bleeding | CPT/HCPCS: 43239; 45378 ==

== ENCOUNTER 2023-04-01 11:39 | Outpatient (AMB) | payer BC, SELFPAY ==
[2023-04-01 11:44] VITALS: BP 98/58; PULSE 67; BMI 24.0
--- NOTE | 2023-04-01 11:44 | A.OFFVIS_ITS ---
Intake Vital Signs 04/01/23 11:44 Height 5 ft 4 in Weight 140 lb BMI 24.0 BP 98/58 L Blood Pressure Location Lt brachial Position Sitting Pulse 67 Intake Visit Reasons: S/Pdouble ;Dr. Castillo Intake Note: Emelina presents in the office as a follow up to her EGD and COLO. CC: She states that she is not having any concerns today. Primary Care Physician Required: No Allergies peanut Allergy (Severe, Verified 04/01/23 11:47) Anaphylaxis shellfish derived Allergy (Severe, Verified 04/01/23 11:47) Skin rash Medication List - Last Reconciled 04/01/23 by Nehal Kemp PA-C albuterol sulfate 90 mcg/actuation 2 puffs PO Q6H albuterol sulfate 2.5 mg (3 mL) inhalation Q4-6H PRN 30 days alprazolam 0.5 mg PO DAILY PRN armodafinil (Nuvigil) 50 mg PO QAM fexofenadine (Nancy Allergy) 180 mg PO DAILY fluticasone furoate-vilanterol 100-25 mcg/dose (Breo Ellipta) 1 inh inhalation Q24H 30 days zohrxkndjlf-shdchofmc-ehjksaco 200-62.5-25 mcg (Trelegy Ellipta) 1 inh inhalation DAILY 30 days nebulizers As directed omeprazole 10 mg PO .daily 30 days tizanidine 2 mg PO BEDTIME PRN triamcinolone acetonide (Nasacort) 2 sprays intranasal DAILY HPI HPI Comments History of Present Illness Details A 47 y/o female- bloating - constipation- Reviewed procedure report, pathology, recommendations Nonspecific colitis, biopsies negative PFSH Medical History (Updated 04/05/23 @ 12:33 by Nehal Kemp PA-C) Pulmonary nodules Myalgic encephalomyelitis/chronic fatigue syndrome Long COVID Dyspnea Reactive airway disease Hx of malignant fibrous histiocytoma Surgical History (Updated 03/23/23 @ 10:19 by Malka Tobin) Hx of colonoscopy History of esophagogastroduodenoscopy (EGD) History of H/O: hysterectomy Family History Mother High blood pressure Father Dementia Mental health disorder Paternal Aunt Lupus [facility] Alcohol intake: current Alcohol intake frequency: holidays/special occasions only Patient Tobacco Use Status: Never used Tobacco e-Cigarette/Vaping Use: Never Used Second Hand Smoke Exposure: No service: No Current occupational status: employed 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 Current occupational exposures/hazards: No Cognitive needs: No Hearing needs: No Vision needs: No Review of Systems Const All systems reviewed & are unremarkable except as noted in HPI and below Card Denies chest pain and Denies dyspnea Resp Denies dyspnea GI Denies abdominal pain Physical Exam Vital Signs: Last Vital Signs Pulse 67 04/01/23 11:44 BP 98/58 L 04/01/23 11:44 BMI result Body Mass Index 24.0 Const General: cooperative, healthy appearing, comfortable and no acute distress Orientation/consciousness: patient oriented x3 Limitations: no limitations Neuro General: patient oriented x3 Psych Appearance: grossly normal and well kempt Mental Status: mental status grossly normal Speech and movement: Normal speech and movement present and Clear speech present Affect: normal affect Thought content: Normal thought content present Insight: Good insight present (Psych) Judgement: Good judgement present (Psych) Results Reviewed Results Reviewed: Impression and Post Procedure Diagnosis: Endoscopy Findings: ESOPHAGUS: Small hiatal hernia STOMACH: Gastritis DUODENUM: Normal - biopsied to check for celiac sprue Colonoscopy Findings: No polyps were detected. Patchy erythema in the distal rectum - biopsies obtained to check for proctitis Moderate diverticulosis seen in the sigmoid colon Plan: Await pathology results Patient has an appointment on 04/01/23 in the [facility] with QUIN Simpson. Repeat Colonoscopy in 10 years. Above findings were reviewed with the patient and Gastritis and diverticulosis handouts were given in the discharge area Assessment & Plan Assessment & Plan (1) Gastritis: Code(s): K29.70 - Gastritis, unspecified, without bleeding (2) Chronic constipation: Comment: She will continue with her own regimen she has tried multiple different OTCs as well as Linzess without much improvement. Code(s): K59.09 - Other constipation (3) Bloating: Code(s): R14.0 - Abdominal distension (gaseous) Plan send note to Dr. Miller path call pt Phone Type [phone] fiber gummies Patient Instructions: Pleasant 47-year-old female follows up after recent colonoscopy Reviewed procedure report, pathology as well as recommendation-colitis nonspecific Will treat constipation maintain high-fiber diet-fiber gummy Note sent to -call patient with response, any changes in plan of care Coding Level of Care Code Est Pt Level 3 (58044) Diagnoses Gastritis K29.70 Chronic constipation K59.09 Bloating R14.0 Time Spent (min) 20
== END 2023-04-01 14:08 | disposition home or self-care (01) ==
PROVIDERS: PCP Internal Medicine; Visit Provider Physician Assistant
DX: K29.70 Gastritis, unspecified, without bleeding (principal); K59.09 Other constipation; R14.0 Abdominal distension (gaseous)
CPT/HCPCS: 99213

== ENCOUNTER → 2023-04-01 11:39 | Outpatient (BNVA) | payer BC, SELFPAY | PROVIDERS: PCP Internal Medicine; Visit Provider Physician Assistant ==

== ENCOUNTER 2023-12-27 15:40 | Outpatient (REF) | payer BC, SELFPAY ==
--- NOTE | ~2023-12-27 | MM_ITS ---
EXAMINATION: MM SCREENING DIGITAL BREAST TOMOSYNTHESIS, BILATERAL CLINICAL INFORMATION: Screening. Asymptomatic. COMPARISON: Mammography: This study is compared with prior exams dating back to 2020. TECHNIQUE: Digital breast tomosynthesis is performed in both the craniocaudal and mediolateral oblique views along with computer-aided detection (CAD). Synthesized 2D images are generated from the tomosynthesis. FINDINGS: The breasts are extremely dense, which lowers the sensitivity of mammography (ACR BI-RADS breast composition Category d). There is a focal asymmetry in the upper outer quadrant of the left breast. Additional mammographic and targeted sonographic imaging is advised. In the right breast, no are no significant masses, abnormal calcifications, or other abnormalities. MM/MM tomosynthesis screening BI IMPRESSION: Focal asymmetry of the left breast warrants additional mammographic and targeted sonographic imaging. No mammographic signs of malignancy right breast. ASSESSMENT: BI-RADS BI-RADS 0 - Incomplete: Needs additional Imaging. RECOMMENDATION: 1. Additional views of the left breast. 2. Targeted ultrasound if warranted after review of the additional views. 3. Radiology department staff will contact the patient for additional imaging. Additional Imaging required This examination should not preclude the clinical evaluation of a suspicious palpable abnormality. This patient's information was entered into a reminder system with a target due date for their next mammogram.
== END 2023-12-27 15:41 | disposition home or self-care (01) ==
LOC: HO.MAMMO 15:40
PROVIDERS: PCP Internal Medicine; Visit Provider Internal Medicine
DX: Z12.31 Encounter for screening mammogram for malignant neoplasm of breast (principal)
CPT/HCPCS: 77063; 77067

== ENCOUNTER → 2023-12-27 16:00 | Outpatient (BNV) | payer BC, SELFPAY | PROVIDERS: PCP Internal Medicine; Visit Provider Radiology Diagnostic Radiology | DX: Z12.31 Encounter for screening mammogram for malignant neoplasm of breast (principal) | CPT/HCPCS: 77063; 77067 ==

== ENCOUNTER 2024-02-03 13:28 | Outpatient (REF) | payer BC, SELFPAY ==
--- NOTE | ~2024-02-03 | MM_ITS ---
EXAMINATION: MM DIAGNOSTIC DIGITAL BREAST TOMOSYNTHESIS, LEFT US BREAST LIMITED, LEFT MAMMOGRAPHY: CLINICAL INFORMATION: 48-year-old female, diagnostic for evaluation of area of suspected architectural distortion upper outer quadrant of the left breast. COMPARISON: Mammography: 12/27/2023, and exams dating back to 2020. TECHNIQUE: Digital left breast tomosynthesis is performed in the following views: Full-field 3-D digital left mediolateral view, as well as 3-D spot compression laterally exaggerated CC views x2, and MLO view x1. Computer-aided diagnosis was used for this study. This was followed by targeted left breast ultrasound. FINDINGS: The breasts are extremely dense, which lowers the sensitivity of mammography (ACR BI-RADS breast composition Category d). Diagnostic views demonstrate persistent foci of architectural distortion in the middle left breast upper outer quadrant, as well as a second focus of architectural distortion in the upper slightly inner left breast posterior one third. These persist on spot compression views and diagnostic full-field left mediolateral view. We will evaluate these findings with ultrasound. No additional suspicious findings. ULTRASOUND: CLINICAL INFORMATION: Evaluate 2 foci of architectural distortion, persistent on diagnostic left mammogram. COMPARISON: None TECHNIQUE: Targeted sonographic evaluation left breast was performed using a high frequency linear transducer. Attention was given to the left breast spanning 11:00 to 4:00 axis, to include the areas of concern. Selected archived documentation. FINDINGS: LEFT BREAST: -There is fibrocystic dense breast tissue present, with numerous scattered simple cysts, the largest at 2:00, 2 cm from the nipple, measuring 9 x 8 x 6 mm. No suspicious masses, areas of abnormal shadowing, or definitive areas of architectural distortion identified by sonography. Findings suggest possible radial scar is but are indeterminate. MM/MM tomosynthesis added views L IMPRESSION: -Left breast demonstrating upper inner and upper outer persistent foci of architectural distortion as described without sonographic correlate. Findings are indeterminant, may represent radial scars, and stereotactic guided 2 site biopsy recommended for definitive characterization. Findings and recommendations discussed with the patient in detail. She seems to understand the overall plan. OVERALL ASSESSMENT: Mammography: BI-RADS 4 - Suspicious finding Ultrasound: BI-RADS 4 - Suspicious finding RECOMMENDATION: Biopsy recommended
== END 2024-02-03 13:29 | disposition home or self-care (01) ==
LOC: HO.MAMMO 13:28
PROVIDERS: PCP Internal Medicine; Visit Provider Internal Medicine
DX: N64.89 Other specified disorders of breast (principal)
CPT/HCPCS: 76642; 77061; 77065

== ENCOUNTER → 2024-02-03 13:30 | Outpatient (BNV) | payer BC, SELFPAY | PROVIDERS: PCP Internal Medicine; Visit Provider Radiology Diagnostic Radiology | DX: R92.8 Other abnormal and inconclusive findings on diagnostic imaging of breast (principal) | CPT/HCPCS: 76642; 77061; 77065 ==

== ENCOUNTER 2024-02-10 08:29 | Outpatient (AMB) | payer BC, SELFPAY ==
[2024-02-10 08:30] VITALS: BMI 24.0
--- NOTE | 2024-02-10 08:30 | MHC.OFFVIS ---
Vital Signs 02/10/24 08:30 Height 5 ft 4 in Weight 140 lb BMI 24.0 Intake Visit Reasons: (L) Breast stereotactic bx 2 areas of distortion Intake Note: Patient is seen in office for stereotactic biopsy consult, left breast 2 areas of distortion. Pt c/o: reports no breast pain, reports no discharge from nipple, reports no change in size or shape of the breast. us/mm: 02/03/24 Burn Out Tender Lace Required: No Accompanied by: Self / Same As Patient Allergies peanut Allergy (Severe, Verified 02/10/24 08:35) Anaphylaxis shellfish derived Allergy (Severe, Verified 02/10/24 08:35) Skin rash Medication List - Last Reconciled 02/10/24 by Glenn Romero MD albuterol sulfate 2.5 mg (3 mL) inhalation Q4-6H PRN 30 days armodafinil (Nuvigil) 50 mg PO QAM fexofenadine (Nancy Allergy) 180 mg PO DAILY mometasone-formoterol 50-5 mcg/actuation (Dulera) 2 puffs inhalation Q12H 30 days nebulizers As directed triamcinolone acetonide (Nasacort) 2 sprays intranasal DAILY HPI Comments Details: 48-year-old female patient presenting with a recent screening mammogram performed on 12/27/2023 with follow-up images and ultrasound performed on 02/03/2024 which revealed 2 areas of persistent architectural distortion in the left breast felt to be suspicious for malignancy (BI-RADS 4). Stereotactic guided core biopsy was recommended. As the lesion was not identified by ultrasound. She denies a previous history of breast problems or breast surgery. She denies any current symptoms in the breast including pain, redness, discharge or palpable mass. Her family history is significant only for a maternal aunt with breast cancer in the mid 50s. She is . She is scheduled for a stereotactic guided core biopsy later today at the [facility]. [facility] Medical History Pulmonary nodules Myalgic encephalomyelitis/chronic fatigue syndrome Long COVID Dyspnea Reactive airway disease Hx of malignant fibrous histiocytoma Surgical History Hx of colonoscopy History of esophagogastroduodenoscopy (EGD) History of H/O: hysterectomy Family History Mother High blood pressure Father Dementia Mental health disorder Paternal Aunt Lupus Maternal Aunt Breast cancer [facility] Alcohol intake: current Alcohol intake frequency: holidays/special occasions only Patient Tobacco Use Status: Never used Tobacco e-Cigarette/Vaping Use: Never Used Second Hand Smoke Exposure: No service: No Current occupational status: employed 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 Current occupational exposures/hazards: No Cognitive needs: No Hearing needs: No Vision needs: No Female Reproductive History Menstrual Age of Menarche: 10 Total pregnancies: 0 Review of Systems Const All systems reviewed & are unremarkable except as noted in HPI and below Physical Exam Vital Signs: BMI result Body Mass Index 24.0 Const General: cooperative and no acute distress Nutritional Appearance: well nourished Orientation/consciousness: patient oriented x3 Limitations: no limitations HEENT Head: Yes normocephalic and Yes atraumatic Ears: hearing grossly normal bilaterally Chest Other: Left breast: No skin change, no nipple retraction, no nipple discharge, no palpable mass, no enlarged lymph nodes. Right breast: No skin change, no nipple retraction, no nipple discharge, no palpable mass, no enlarged lymph nodes Resp Effort & Inspection: normal respiratory effort, no audible wheezes, no cough and no respiratory distress Cardio Jugular venous distension: no JVD GI Inspection: Yes normal to inspection Skin Other: Warm, dry, no rash Neuro General: patient oriented x3 Extrem General: Yes no clubbing, cyanosis or edema Assessment & Plan Assessment & Plan (1) Abnormal mammogram of left breast: Code(s): R92.8 - Other abnormal and inconclusive findings on diagnostic imaging of breast Category: Medical Plan 48-year-old female patient presenting with a recent screening mammogram which revealed 2 areas of architectural distortion in the left breast felt to be suspicious (BI-RADS 4). Stereotactic guided core biopsy is recommended in his been scheduled for later today at the [facility]. She denies a previous history of breast problems or breast surgery. Examination today revealed no suspicious findings in either breast and no enlarged lymph nodes. I recommended she return in approximately 1 week to review the pathology results and discuss treatment options as necessary. She expressed understanding and agrees with the plan. Orders: Orders MM stereotactic biopsy LT Today R92.8 - Other abnormal and inconclusive findings on diagnostic imaging of breast MM stereotactic biopsy ea add Today R92.8 - Other abnormal and inconclusive findings on diagnostic imaging of breast Coding Level of Care Code New Pt Level 4 (87064) Diagnoses Abnormal mammogram of left breast R92.8
== END 2024-02-10 08:59 | disposition home or self-care (01) ==
PROVIDERS: PCP Internal Medicine; Visit Provider Surgery
DX: R92.8 Other abnormal and inconclusive findings on diagnostic imaging of breast (principal)
CPT/HCPCS: 99204

== ENCOUNTER 2024-02-10 09:02 | Outpatient (REF) | payer BC, SELFPAY ==
--- NOTE | ~2024-02-10 | MM_ITS ---
EXAMINATION: STEREOTACTIC TOMOSYNTHESIS-GUIDED VACUUM-ASSISTED BREAST BIOPSY, LEFT SPECIMEN RADIOGRAPH, LEFT POST PROCEDURE DIGITAL MAMMOGRAM, LEFT CLINICAL INFORMATION: 2 subtle foci of architectural distortion in the left breast, 1 upper outer quadrant posterior one third (Site A), and a second upper inner quadrant middle one third (Site B). Both with no ultrasonographic correlate and both recommended for stereotactic biopsy. COMPARISON: 12/27/2023, 02/03/2024 mammography. TECHNIQUE/PROCEDURE: Informed consent was obtained from the patient after discussion of the benefits, risks, and alternatives to biopsy today. Patient appeared to understand. Gave opportunity for questions. Patient signed consent form. BIOPSY TABLE: [employer] Prone Biopsy System. SITE A: LESION: Distortion in the upper outer quadrant left breast, posterior one third. LOCAL ANESTHESIA: 3 mL 1% lidocaine; 8 mL 1% lidocaine with epinephrine. DERMATOTOMY: Single skin claudia dermatotomy performed. NEEDLE: [employer] Eviva 9-gauge vacuum assisted core biopsy device. APPROACH: lateral medial. TARGETING: Digital breast tomosynthesis used for targeting. CORES: 7. CLIP: Buckle shaped. SITE B: LESION: Distortion in the upper inner quadrant left breast middle one third. LOCAL ANESTHESIA: 3 mL 1% lidocaine; 15 mL 1% lidocaine with epinephrine. DERMATOTOMY: Single skin claudia dermatotomy performed. NEEDLE: [employer] Eviva 9-gauge vacuum assisted core biopsy device. APPROACH: medial lateral. TARGETING: Digital breast tomosynthesis used for targeting. CORES: 6. CLIP: Top hat shaped. SPECIMEN RADIOGRAPH: Not necessary. POST PROCEDURE UNILATERAL DIGITAL MAMMOGRAM: The post biopsy mammogram is performed in separate room using separate digital mammography equipment from the biopsy procedure. Left CC and ML views are obtained. The breasts are heterogeneously dense, which may obscure small masses (breast composition category: c). The upper outer clip marker (site A) is in good position. The upper inner middle biopsy clip (site B) appears to have migrated along the biopsy tract, likely due to bleeding, and is located just underneath the skin medially, approximately 2.5 cm away from the distortion. Site B upper inner demonstrated moderate bleeding, complicated by a small 2.0 cm hematoma. Hemostasis was eventually achieved. The patient tolerated the procedure well. Home instructions reviewed with the patient. Final pathology results are pending. MM/MM stereotactic biopsy ea add IMPRESSION: 1. 2 site Digital tomosynthesis-guided core biopsy left breast with 2 clip placements. 2. Post procedure left mammogram Site A: There is satisfactory and accurate positioning of the upper outer buckle-shaped biopsy clip. No hematoma or complication. 3. Postprocedure left mammogram Site B: The top hat-shaped biopsy clip has migrated along the tract likely due to bleeding and is located approximately 2.5 cm away from the upper medial distortion which was sampled. There is a small 2.0 cm hematoma abutting the biopsy site. Hemostasis was eventually achieved successfully. Patient was counseled on limiting activities due to this mild complication. 3. Final pathology results pending. An addendum report will be issued. Electronically signed by: Des Le MD 02/10/2024 04:02 PM EDT
--- NOTE | ~2024-02-10 | MM_ITS ---
EXAMINATION: STEREOTACTIC TOMOSYNTHESIS-GUIDED VACUUM-ASSISTED BREAST BIOPSY, LEFT SPECIMEN RADIOGRAPH, LEFT POST PROCEDURE DIGITAL MAMMOGRAM, LEFT CLINICAL INFORMATION: 2 subtle foci of architectural distortion in the left breast, 1 upper outer quadrant posterior one third (Site A), and a second upper inner quadrant middle one third (Site B). Both with no ultrasonographic correlate and both recommended for stereotactic biopsy. COMPARISON: 12/27/2023, 02/03/2024 mammography. TECHNIQUE/PROCEDURE: Informed consent was obtained from the patient after discussion of the benefits, risks, and alternatives to biopsy today. Patient appeared to understand. Gave opportunity for questions. Patient signed consent form. BIOPSY TABLE: [employer] Prone Biopsy System. SITE A: LESION: Distortion in the upper outer quadrant left breast, posterior one third. LOCAL ANESTHESIA: 3 mL 1% lidocaine; 8 mL 1% lidocaine with epinephrine. DERMATOTOMY: Single skin claudia dermatotomy performed. NEEDLE: [employer] Eviva 9-gauge vacuum assisted core biopsy device. APPROACH: lateral medial. TARGETING: Digital breast tomosynthesis used for targeting. CORES: 7. CLIP: Buckle shaped. SITE B: LESION: Distortion in the upper inner quadrant left breast middle one third. LOCAL ANESTHESIA: 3 mL 1% lidocaine; 15 mL 1% lidocaine with epinephrine. DERMATOTOMY: Single skin claudia dermatotomy performed. NEEDLE: [employer] Eviva 9-gauge vacuum assisted core biopsy device. APPROACH: medial lateral. TARGETING: Digital breast tomosynthesis used for targeting. CORES: 6. CLIP: Top hat shaped. SPECIMEN RADIOGRAPH: Not necessary. POST PROCEDURE UNILATERAL DIGITAL MAMMOGRAM: The post biopsy mammogram is performed in separate room using separate digital mammography equipment from the biopsy procedure. Left CC and ML views are obtained. The breasts are heterogeneously dense, which may obscure small masses (breast composition category: c). The upper outer clip marker (site A) is in good position. The upper inner middle biopsy clip (site B) appears to have migrated along the biopsy tract, likely due to bleeding, and is located just underneath the skin medially, approximately 2.5 cm away from the distortion. Site B upper inner demonstrated moderate bleeding, complicated by a small 2.0 cm hematoma. Hemostasis was eventually achieved. The patient tolerated the procedure well. Home instructions reviewed with the patient. Final pathology results are pending. MM/MM stereotactic biopsy LT IMPRESSION: 1. 2 site Digital tomosynthesis-guided core biopsy left breast with 2 clip placements. 2. Post procedure left mammogram Site A: There is satisfactory and accurate positioning of the upper outer buckle-shaped biopsy clip. No hematoma or complication. 3. Postprocedure left mammogram Site B: The top hat-shaped biopsy clip has migrated along the tract likely due to bleeding and is located approximately 2.5 cm away from the upper medial distortion which was sampled. There is a small 2.0 cm hematoma abutting the biopsy site. Hemostasis was eventually achieved successfully. Patient was counseled on limiting activities due to this mild complication. 3. Final pathology results pending. An addendum report will be issued. Electronically signed by: Des Le MD 02/10/2024 04:02 PM GABRIELLAT
[2024-02-10] MEDS: Lidocaine HCl 1 % MPF 5 ML VIAL 4 ML SUBCUT (10:37)
[2024-02-10] MEDS: Sodium Bicarbonate 8.4% 50 MEQ/50 ML VIAL SUBCUT ×2 (10:38→10:44)
[2024-02-10] MEDS: Lidocaine HCl 1%/Epi 1:100,000 10 ML VIAL 16 ML SUBCUT (10:39)
[2024-02-10] MEDS: Lidocaine HCl 1 % 20 ML VIAL 4 ML SUBCUT (10:42)
[2024-02-10] MEDS: Lidocaine HCl 1%/Epi 1:100,000 10 ML VIAL 25 ML SUBCUT (10:46)
== END 2024-02-10 09:03 | disposition home or self-care (01) ==
LOC: HO.MAMMO 09:02
PROVIDERS: PCP Internal Medicine; Visit Provider Surgery
DX: R92.8 Other abnormal and inconclusive findings on diagnostic imaging of breast (principal)
CPT/HCPCS: 19081; 19082; 88305; A4648

== ENCOUNTER → 2024-02-10 09:30 | Outpatient (BNV) | payer BC, SELFPAY | PROVIDERS: PCP Internal Medicine; Visit Provider Radiology Diagnostic Radiology | DX: R92.8 Other abnormal and inconclusive findings on diagnostic imaging of breast (principal) | CPT/HCPCS: 19081; 19082; 77065 ==

== ENCOUNTER 2024-02-17 12:50 | Outpatient (AMB) | payer BC, SELFPAY ==
--- NOTE | 2024-02-17 13:24 | MHC.OFFVIS ---
Intake Visit Reasons: s/p(L) Breast stereotactic Biopy results Allergies peanut Allergy (Severe, Verified 02/10/24 08:35) Anaphylaxis shellfish derived Allergy (Severe, Verified 02/10/24 08:35) Skin rash Medication List - Last Reconciled 02/17/24 by Carlo Medina MD albuterol sulfate 2.5 mg (3 mL) inhalation Q4-6H PRN 30 days armodafinil (Nuvigil) 50 mg PO QAM fexofenadine (Nancy Allergy) 180 mg PO DAILY mometasone-formoterol 50-5 mcg/actuation (Dulera) 2 puffs inhalation Q12H 30 days nebulizers As directed triamcinolone acetonide (Nasacort) 2 sprays intranasal DAILY HPI Comments Details: Patient was status post stereotactic biopsy x2. She was evaluated with Humphrey present throughout. Dr. Romero is in surgery and I am here to review the pathology results for the with the patient. She has no issues regarding post biopsy procedure. Pathology results were reviewed demonstrating 2 areas which were both benign. [facility], [facility] Medical History Pulmonary nodules Myalgic encephalomyelitis/chronic fatigue syndrome Long COVID Dyspnea Reactive airway disease Hx of malignant fibrous histiocytoma Surgical History Hx of colonoscopy History of esophagogastroduodenoscopy (EGD) History of H/O: hysterectomy Family History Mother High blood pressure Father Dementia Mental health disorder Paternal Aunt Lupus Maternal Aunt Breast cancer Social History Housing: Condominium Alcohol intake: current Alcohol intake frequency: holidays/special occasions only Patient Tobacco Use Status: Never used Tobacco e-Cigarette/Vaping Use: Never Used Second Hand Smoke Exposure: No service: No Current occupational status: employed 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 Romero or sputum with of next week regarding further care and follow-up. All questions answered. Patient otherwise follow-up as directed or p.r.n. Discussed the pathology results with the patient over the telephone this afternoon. Initially I was concerned about a radial scar or architectural distortion however the pathology is revealing fibroadenomatous change without atypia or malignancy. A repeat mammogram in 6 months is recommended. I suggested follow-up in 6 months to review the results and repeat examination. She expressed understanding and agrees with the plan. Coding Level of Care Code New Pt Level 3 (24246) Diagnoses Status post breast biopsy Z98.890
== END 2024-02-17 13:43 | disposition home or self-care (01) ==
PROVIDERS: PCP Internal Medicine; Visit Provider Surgery
DX: R92.8 Other abnormal and inconclusive findings on diagnostic imaging of breast (principal); Z98.890 Other specified postprocedural states
CPT/HCPCS: 99213

== ENCOUNTER → 2024-02-17 12:50 | Outpatient (BNVA) | payer BC, SELFPAY | PROVIDERS: PCP Internal Medicine; Visit Provider Surgery | DX: R92.8 Other abnormal and inconclusive findings on diagnostic imaging of breast (principal) ==

== ENCOUNTER 2024-02-22 14:02 | Outpatient (AMB) | payer BC, SELFPAY ==
--- NOTE | 2024-02-22 14:03 | A.OFFVIS_ITS ---
Vital Signs 3 02/22/24 14:12 Height 5 ft 4 in Weight 138 lb 14.259 oz BMI 23.8 Pulse 66 Intake Visit Reasons: wound check, (L) Breast Biopsy site Intake Note: Patient is seen in office for wound check, (L) Breast Biopsy site. Pt c/o: admits to bleeding in the area for the past couple of days, on and off Html Developer Required: No Policy And Planning Manager: Policy And Planning Manager Present Accompanied by: Self / Same As Patient Allergies peanut Allergy (Severe, Verified 02/22/24 14:12) Anaphylaxis shellfish derived Allergy (Severe, Verified 02/22/24 14:12) Skin rash HPI Comments Details: 48-year-old female patient presenting with a recent screening mammogram performed on 12/27/2023 with follow-up images and ultrasound performed on 02/03/2024 which revealed 2 areas of persistent architectural distortion in the left breast felt to be suspicious for malignancy (BI-RADS 4). Stereotactic guided core biopsy was recommended. As the lesion was not identified by ultrasound. She denies a previous history of breast problems or breast surgery. She denies any current symptoms in the breast including pain, redness, discharge or palpable mass. Her family history is significant only for a maternal aunt with breast cancer in the mid 50s. She is . She underwent a stereotactic guided core biopsy on 02/10/2024. Subsequent pathology revealed benign breast tissue with fibroadenomatous change, columnar cell change, adenosis; no atypia or malignancy identified. The 2nd biopsy revealed benign breast tissue with sclerosing adenosis fibroadenomatous change, focal usual ductal hyperplasia and focal calcification; no atypia or malignancy identified. She returns today for wound check. She reports bloody discharge from the more medial biopsy site and has been changing the dressings on a daily basis. [facility] Medical History Pulmonary nodules Myalgic encephalomyelitis/chronic fatigue syndrome Long COVID Dyspnea Reactive airway disease Hx of malignant fibrous histiocytoma Surgical History Hx of colonoscopy History of esophagogastroduodenoscopy (EGD) History of H/O: hysterectomy Family History Mother High blood pressure Father Dementia Mental health disorder Paternal Aunt Lupus Maternal Aunt Breast cancer Social History Housing: Condominium Alcohol intake: current Alcohol intake frequency: holidays/special occasions only Patient Tobacco Use Status: Never used Tobacco e-Cigarette/Vaping Use: Never Used Second Hand Smoke Exposure: No service: No Current occupational status: employed 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 Current occupational exposures/hazards: No Cognitive needs: No Hearing needs: No Vision needs: No Female Reproductive History Menstrual Age of Menarche: 10 Review of Systems Const All systems reviewed & are unremarkable except as noted in HPI and below Physical Exam Vital Signs: Last Vital Signs Pulse 66 02/22/24 14:12 BMI result Body Mass Index 23.8 Const General: cooperative and no acute distress Nutritional Appearance: well nourished Orientation/consciousness: patient oriented x3 Limitations: no limitations HEENT Head: Yes normocephalic and Yes atraumatic Ears: hearing grossly normal bilaterally Chest Chest/axillae images: 2 1. Site of bloody discharge in the upper inner quadrant. A small subcutaneous hematoma is palpable. Light pressure produces a small amount of dark/old blood. New Steri-Strips and bandage applied. Resp Effort & Inspection: normal respiratory effort, no audible wheezes, no cough and no respiratory distress Cardio Jugular venous distension: no JVD GI Inspection: Yes normal to inspection Skin Other: Warm, dry, no rash Neuro General: patient oriented x3 Extrem General: Yes no clubbing, cyanosis or edema Assessment & Plan Assessment & Plan (1) Status post breast biopsy: Code(s): Z98.890 - Other specified postprocedural states Category: Surgical Plan Post biopsy bleeding from the medial left biopsy site appears to have a small hematoma with old blood and no evidence of active bleeding or infection. New Steri-Strips was applied followed by a sterile bandage. I recommended follow-up examination in 1 week. Coding Level of Care Code Est Pt Level 3 (38352) Diagnoses Status post breast biopsy Z98.890
[2024-02-22 14:12] VITALS: PULSE 66; BMI 23.8
== END 2024-02-22 14:23 | disposition home or self-care (01) ==
PROVIDERS: PCP Internal Medicine; Visit Provider Surgery
DX: Z98.890 Other specified postprocedural states (principal)
CPT/HCPCS: 99213

== ENCOUNTER → 2024-02-22 14:02 | Outpatient (BNVA) | payer BC, SELFPAY | PROVIDERS: PCP Internal Medicine; Visit Provider Surgery ==

== ENCOUNTER → 2024-09-06 14:30 | Outpatient (BNV) | payer BC, SELFPAY | PROVIDERS: Visit Provider Internal Medicine | DX: R92.332 Mammographic heterogeneous density, left breast (principal); Z80.3 Family history of malignant neoplasm of breast | CPT/HCPCS: 77061; 77065 ==

== ENCOUNTER 2024-09-06 14:32 | Outpatient (REF) | payer BC, SELFPAY ==
--- NOTE | ~2024-09-06 | MM_ITS ---
EXAMINATION: MM DIAGNOSTIC DIGITAL BREAST TOMOSYNTHESIS, LEFT CLINICAL INFORMATION: 6 month follow-up after 2 benign stereotactic core needle biopsies for distortion in the left breast. Family history of breast cancer including maternal aunt. COMPARISON: Mammography: Priors on PACS. TECHNIQUE: Digital breast tomosynthesis is performed in both the craniocaudal and mediolateral oblique views along with computer-aided detection (CAD). Synthesized 2D images are generated from the tomosynthesis. FINDINGS: The breasts are heterogeneously dense, which may obscure small masses (ACR BI-RADS breast composition Category c). Marker clip in the upper outer breast from previous benign needle core biopsy and an Marker clip in the central inner breast which migrated after benign stereotactic core needle biopsy. The previously seen areas of distortion are slightly less conspicuous compared with priors. No suspicious calcifications or other abnormal findings. MM/MM tomosynthesis diagnostic LT IMPRESSION: 6 month follow-up after 2 benign stereotactic core needle biopsies from areas of architectural distortion which are slightly less conspicuous on today's imaging. Recommend 6 month follow-up for further evaluation of stability when the patient will be due for bilateral mammography. The patient has dense breast tissue and family history of breast cancer. Breast MRI could be considered for further evaluation . Breast MRI would need to be ordered by the patient's providing clinician. ASSESSMENT: BI-RADS BI-RADS 3 - Probably benign finding(s) - 6 month follow-up suggested RECOMMENDATION: 6 Month F/U Results were provided to the patient at time of visit by the technologist. This patient's information was entered into a reminder system with a target due date for their next mammogram. Electronically signed by: Cathleen Quinn DO 09/06/2024 03:03 PM EDT
--- OUTSIDE RECORDS SUMMARY | 2024-09-06 16:50 | XMS_ITS | Clinical Summary ---
Author Organization [facility] ity Address [address] [place] [address] Care Team Providers Care Oil Refiner Name Role Phone Unavailable Primary Care Provider Unavailabl e Social History Tobacco Use Types Packs/Day Years Used Date Smoking Tobacco: Never Assessed Comments Unknown Sex and Gender Information Value Date Recorded Sex Assigned at Not on file Legal Sex Female 10:57 PM EST Gender Identity Not on file Sexual Orientation Not on file Plan of Treatment Health Maintenance Due Date Last Done Comments Breast Cancer Screening 1977 DTaP,Tdap,and Td Vaccines (1 - Tdap) 1996 Hepatitis B Vaccines (1 of 3 - 19+ 3-dose series) 1996 Cervical Cancer Screening: P ap Smear 1998 Colorectal Cancer Screening: Colonoscopy 05/24/2022 Depression Screening 05/24/2022 HIV Screening 05/24/2022 Hepatitis C Screening 05/24/2022 Social Influencers of Health Screening 05/24/2022 COVID-19 Vaccine ( - 2023-2 5 season) 2024 Influenza Vaccine (#1) 2024 HIB Vaccines Aged Out No longer eligi ble based on patient's age to complete this topic HPV Vaccines Aged Out No longer eligi ble based on patient's age to complete this topic Hepatitis A Vaccines Aged Out No long er eligible based on patient's age to complete this topic IPV Vaccines Aged Out No longer eligi ble based on patient's age to complete this topic MMR Vaccines Aged Out No longer eligi ble based on patient's age to complete this topic Meningococcal ACWY Vaccine Aged Out N o longer eligible based on patient's age to complete this topic Meningococcal B Vacine Aged Out No lo nger eligible based on patient's age to complete this topic Pneumococcal Vaccine: Pediat rics (0 to 5 Years) and At-Risk Patients (6 to 64 Years) Aged Out No longer eligible b ased on patient's age to complete this topic RSV Immunization Patients Un vani 20 months Aged Out No longer eligible b ased on patient's age to complete this topic Varicella Vaccines Aged Out No longer eligible based on patient's age to complete this topic
== END 2024-09-06 14:33 | disposition home or self-care (01) ==
LOC: HO.MAMMO 14:32
PROVIDERS: Visit Provider Surgery
DX: R92.8 Other abnormal and inconclusive findings on diagnostic imaging of breast (principal); Z98.890 Other specified postprocedural states
CPT/HCPCS: 77061; 77065

== ENCOUNTER 2024-10-26 16:34 | Outpatient (AMB) | payer BC, SELFPAY ==
[2024-10-26 16:36] VITALS: BP 110/72; BMI 22.8
--- NOTE | 2024-10-26 16:36 | MHC.PC.OV ---
Vital Signs 10/26/24 16:36 Height 5 ft 4 in Weight 133 lb BMI 22.8 BP 110/72 Blood Pressure Location Lt brachial Position Sitting Intake Visit Reasons: annual exam Intake Note: Patient here for an annual physical exam [employer] Required: No Accompanied by: Self / Same As Patient Allergies peanut Allergy (Severe, Verified 10/26/24 16:51) Anaphylaxis shellfish derived Allergy (Severe, Verified 10/26/24 16:51) Skin rash Medication List - Last Reconciled 10/26/24 by Katlin Cates MD albuterol sulfate 2.5 mg (3 mL) inhalation Q4-6H PRN 30 days fexofenadine (Nancy Allergy) 180 mg PO DAILY mometasone-formoterol 50-5 mcg/actuation (Dulera) 2 puffs inhalation Q12H 30 days nebulizers As directed triamcinolone acetonide (Nasacort) 2 sprays intranasal DAILY Tobacco use date assessed: 10/26/24 Dental Screening Dental Screen Date: 10/26/24 Did you have a dental visit in the last 12 months?: Yes Did you have a dental problem in the last 6 months where you did not have access to dental care?: No Was dental information given to patient?: Patient has dentist HPI HPI Comments History of Present Illness Details The patient is a 49-year-old female presenting for a physical exam and wellness check. She has a diagnosis of diverticulosis and reports experiencing intermittent blood in her stool and constipation associated with this condition. These episodes appear to correlate with her stress levels and instances of constipation. The patient also notes fluctuations in appetite which she believes are connected to her diverticulosis. She has a recognized history of asthma, which is currently under management with a rescue inhaler and allergy medications, following completion of an extensive allergy program. Her allergies include severe peanut allergy causing anaphylaxis and an allergy to shellfish. In the past, the patient underwent a hysterectomy for menorrhagia associated with fibroids. Despite retaining her ovaries, she was reassured that Pap smears are unnecessary unless her hysterectomy was related to cancer. She inquired about potential ovarian issues and was informed that pelvic ultrasounds could be used for evaluation. Additionally, she had a molar extracted due to abscess formation. Family history reveals her father due to complications of dementia and her mother suffered from health issues related to a lap band surgery. The patient has reported undergoing significant stress in her personal and professional life, and she is seeking to explore the impact on her health, including considering testing cortisol levels to evaluate stress. - Tdap vaccine administered in 2022 - Colonoscopy and endoscopy performed in 2022 with diagnosis of diverticulosis - No need for Pap Smears due to hysterectomy for benign reasons. [facility] Medical History (Updated 10/26/24 @ 17:19 by Katlin Cates MD) Pulmonary nodules Myalgic encephalomyelitis/chronic fatigue syndrome Long COVID Dyspnea Reactive airway disease Hx of malignant fibrous histiocytoma Surgical History (Updated 10/26/24 @ 17:08 by Katlin Cates MD) H/O breast biopsy History of tooth extraction Hx of colonoscopy History of esophagogastroduodenoscopy (EGD) History of H/O: hysterectomy Family History (Updated 10/26/24 @ 17:08 by Katlin Cates MD) Mother High blood pressure Father Dementia Mental health disorder Paternal Aunt Lupus Maternal Aunt Breast cancer Social History (Updated 10/26/24 @ 17:10 by Katlin Cates MD) Housing: Condominium Alcohol intake: current Alcohol intake frequency: holidays/special occasions only Alcohol type: wine Patient Tobacco Use Status: Never used Tobacco e-Cigarette/Vaping Use: Never Used Second Hand Smoke Exposure: No service: No Current occupational status: employed 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 1. Little interest or pleasure in doing things: not at all 2. Feeling down, depressed, or hopeless: not at all 3. Trouble falling or staying asleep, or sleeping too much: not at all 4. Feeling tired or having little energy: not at all 5. Poor appetite or overeating: not at all 6. Feeling bad about yourself - or that you are a failure or have let yourself or your family down: not at all 7. Trouble concentrating on things, such as reading the newspaper or watching television: not at all 8. Moving or speaking so slowly that other people could have noticed. Or the opposite - being so fidgety or restless that you have been moving around a lot more than usual: not at all 9. Thoughts that you would be better off or of hurting yourself in some way: not at all Total score: 0 Depression Screening Interpretation: Negative Depression Screening Done: Yes 90731 - PHQ-9 Billing: Yes Source: Developed by Drs. Srinivasa Gage, Sharron Otto, Nazario Andrade and colleagues, with an educational sarahi from [employer]. Thrive Questionnaire Date Thrive assessed: 10/26/24 I am a: Patient What is your living situation today?: I have a steady place to live Within the past 12 months, did the food you bought not last and you didn't have the money to get more?: Never true Within the past 12 months, did you worry whether your food would run out before you got money to buy more?: Never true Do you have trouble paying for medicines?: No Do you have trouble getting transportation to medical appointments?: No Do you have trouble paying your heating and electricity bill?: No Do you have trouble taking care of your child, family member or friend?: No Do you have trouble with day-to-day activities such as bathing, preparing meals, shopping, managing finances, etc.?: No Are you currently unemployed and looking for a job?: No Are you interested in more education?: No Please select the resources that you would like help with: None Currently or been in a relationship where the following occur: No concerns reported THRIVE Score: 0 AUDIT C Alcohol Use Questionnaire (AUDIT-C) 1. How often do you have a drink containing alcohol?: Monthly or less 2. How many drinks containing alcohol do you have on a typical day when you are drinking?: 1 or 2 3. How often do you have six or more drinks on one occasion?: Never Total Score: 1 Score Reviewed/Action Taken: No SARAH-7 AMB Questionnaire SARAH-7 Date SARAH - 7 assessed: 10/26/24 Feeling nervous, anxious, or on edge: 0 = Not at all Not being able to stop or control worryin = Not at all Worrying too much about different things: 0 = Not at all Trouble relaxin = Not at all Being so restless that it is hard to sit still: 0 = Not at all Becoming easily annoyed or irritable: 0 = Not at all Feeling afraid as if something awful might happen: 0 = Not at all Total SARAH-7 score (0-4 normal; 5-9 mild; 10-14 moderate; 15-21 severe): 0 Source: Developed by Drs. Srinivasa Gage, Sharron Otto, Nazario Andrdae and colleagues, with an educational sarahi from [employer]. SARAH-7 Assessment Billing SARAH-7 Assessment Tool: SARAH-7 Assessment 60407 Review of Systems Const All systems reviewed & are unremarkable except as noted in HPI and below Card Denies chest pain at rest, Denies chest pain with activity, Denies edema, Denies irregular heart rhythm, Denies claudication, Denies dyspnea, Denies dyspnea on exertion, Denies orthopnea, Denies paroxysmal nocturnal dyspnea and Denies slow heart rate Resp Denies cough, Denies dyspnea and Denies dyspnea on exertion GI Denies abdominal pain, Denies change in bowel habits, Denies excessive flatus, Denies nausea and Denies vomiting Physical exam (Primary Care) Vital Signs: Last Vital Signs BP 110/72 10/26/24 16:36 BMI result Body Mass Index 22.8 Tobacco/Smoking Status: Tobacco use Status Tobacco use date assessed 10/26/24 10/26/24 16:44 Patient Tobacco Use Status Never used Tobacco 10/26/24 17:10 e-Cigarette/Vaping Use Never Used 10/26/24 17:10 PHQ-9: PHQ-9 Score PHQ-9: Total score 0 10/26/24 16:54 Depression Screening Interpretation: Negative Thrive Assessment: Date of Thrive Assessment Date Thrive assessed 10/26/24 10/26/24 16:44 Currently or been in a relationship where the following occur: No concerns reported [facility] Head: Yes normal to inspection, Yes normocephalic and Yes atraumatic Ears: external ears normal Eyes General: appearance normal, both eyes and all related structures Eyelids: Yes eyelids normal Conjunctivae: conjunctivae normal Neck Neck: Yes normal visual inspection and Yes supple Resp Effort & Inspection: normal respiratory effort Auscultation: clear to auscultation bilaterally Cardio Jugular venous distension: no JVD Rate: regular rate Rhythm: regular rhythm Heart sounds: S1 normal heart sound present and S2 normal heart sound present GI Inspection: Yes normal to inspection Palpation (GI): Soft to palpation and nontender Auscultation: normal bowel sounds Skin General skin exam: no rashes or lesions noted Neuro General: no focal motor deficits Extrem General: Yes full ROM Psych Appearance: grossly normal Coding Level of Care Code Est Pt Level 3 (63760) Est Pt Prev Care 40-64y(09946) Diagnoses Physical exam Z00.00 Bloody stools K92.1 Additional Codes SARAH-7 Assessment Billing - SARAH-7 Assessment Tool: SARAH-7 Assessment 01543 ([id number]) PHQ-9 - 07080 - PHQ-9 Billing: Yes ([id number]) Time Spent (min) 35 Assessment & Plan Assessment & Plan (1) Physical exam: Code(s): Z00.00 - Encounter for general adult medical examination without abnormal findings Category: Medical (2) Bloody stools: Code(s): K92.1 - Melena Category: Medical Plan We agreed on the need to initiate lab work for a comprehensive assessment of the patient's vitamin levels and cholesterol, along with cortisol to evaluate the stress impact. I recommend seeing a gastrointestinal specialist to address the diverticulosis and any related intermittent bleeding. For asthma and allergies management, her medication regimen will continue as previously directed. I addressed concerns related to menopause symptoms post-hysterectomy, explaining their potential onset and management. I also emphasized that regular follow-up and prompt reporting of any new symptoms or exacerbations are crucial for ongoing well-being. Patient was informed and verbally consented to the use of an ambient scribe for clinic note documentation during this visit. I reviewed with the patient her diagnosis of diverticulosis and the possible need for further evaluation due to intermittent bleeding. We agreed to refer her to a instructor adjunct surgical technician for continued monitoring and management of her diverticulosis. I emphasized the need for ongoing medication and allergy management and discussed the importance of monitoring any stress-related symptoms, such as elevated cortisol levels. I addressed her questions about menopause, explaining that post-hysterectomy symptoms could develop and should be monitored. We concluded this visit with a plan to conduct comprehensive lab work, and I reassured her on the steps necessary to manage her current health issues appropriately. Orders: Orders IRON PROFILE 10/26/24 K92.1 - Melena Comprehensive [place]. Panel Fast 10/26/24 Z00.00 - Encounter for general adult medical examination without abnormal findings Lipid Panel 10/26/24 Z00.00 - Encounter for general adult medical examination without abnormal findings Vitamin B12 and Folate 10/26/24 E53.8 - Deficiency of other specified B group vitamins Vitamin D 25-OH Total 10/26/24 E55.9 - Vitamin D deficiency, unspecified Thyroid Stimulating Hormone 10/26/24 K59.09 - Other constipation Saliva Cortisol 10/26/24 R53.83 - Other fatigue Complete Blood Count Auto Diff 10/26/24 K92.1 - Melena Referrals Gastroenterology Referral K92.1 - Melena Patient Instructions: - Continue taking your asthma and allergy medications as prescribed. - Follow up with a instructor adjunct surgical technician regarding diverticulosis. - Obtain blood tests for vitamin levels, cortisol, and cholesterol within the next three months. - Monitor any changes in symptoms, especially those related to stress and menopause, and report them. - Maintain a high-fiber diet and stay hydrated to manage constipation. - Attend follow-up appointments as discussed to ensure ongoing health maintenance.
== END 2024-10-26 17:20 | disposition home or self-care (01) ==
LOC: HO.HMCH 16:34
PROVIDERS: PCP Internal Medicine; Visit Provider Internal Medicine
DX: Z00.00 Encounter for general adult medical examination without abnormal findings (principal); K92.1 Melena

== ENCOUNTER → 2024-10-26 16:34 | Outpatient (BNVA) | payer BC, SELFPAY | PROVIDERS: PCP Internal Medicine; Visit Provider Internal Medicine | DX: Z00.00 Encounter for general adult medical examination without abnormal findings (principal); K57.30 Diverticulosis of large intestine without perforation or abscess without bleeding; K92.1 Melena | CPT/HCPCS: 96127 ==

== ENCOUNTER 2024-11-04 09:42 | Outpatient (REF) | payer BC, SELFPAY ==
--- OUTSIDE RECORDS SUMMARY | 2024-11-04 09:44 | XMS_ITS | Clinical Summary ---
Author Organization [facility] ity Address [address] [place] [address] Care Team Providers Care Practice Physician Name Role Phone Unavailable Primary Care Provider [...] Influencers of Health Screening 05/24/2022 COVID-19 Vaccine (2023-2 5 season) 2024 Influenza Vaccine (Season Ended) 2025 HIB Vaccines Aged Out No longer eligi [...] age to complete this topic Meningococcal B Vaccine Aged Out No l onger eligible based on patient's age to complete [...]
[2024-11-04 10:00] LABS: MANUAL DIFF FLAG NO
[2024-11-04 11:03] LABS: Basophils Percent Auto 0.8 % (0-2); Eosinophils Absolute Auto 0.2 X10*3/uL (0.0-0.4); Eosinophils Percent Auto 4.9 % (0-4); Hemoglobin 12.2 g/dl (12.0-16.0); Imm Gran Abs Auto 0.01 X10*3/uL (0.00-0.03); Imm Gran Pct Auto 0.2 % (0.0-0.4); Lymphocytes Absolute Auto 1.2 X10*3/uL (1.2-4.9); Lymphocytes Percent Auto 25.2 % (20-40); Mean Corpuscular HGB Conc 33.9 g/dl (31.0-35.0); Mean Corpuscular Hemoglobin 30.4 pg (27.0-33.0); Mean Corpuscular Volume 89.8 fL (80.0-98.0); Mean Platelet Volume 11.1 fL (9.4-12.3); Monocytes Absolute Auto 0.4 X10*3/uL (0.1-1.2); Monocytes Percent Auto 7.3 % (2-11); Neutrophils Percent Auto 61.6 % (45-73); Platelet Count 274 X10*3/uL (160-400); Red Blood Count 4.01 X10*6/uL (4.20-5.50); Red Cell Distribution Width 12.9 % (11.0-16.0); White Blood Count 4.9 X10*3/uL (4.8-10.8)
[2024-11-04 11:46] LABS: Alanine Aminotransferase 10 U/L (0-31); Albumin Level 4.1 g/dL (3.5-5.0); Alkaline Phosphatase 67 U/L (39-117); Anion Gap 11 (12-20); Aspartate Amino Transferase 19 U/L (5-31); Bilirubin Total 0.3 mg/dL (0.0-1.0); Blood Urea Nitrogen 11 mg/dL (9-16); Calcium 8.7 mg/dL (8.4-10.2); Carbon Dioxide 26 mmol/L (22-29); Chloride 108 mmol/L (96-108); Cholesterol 176 mg/dL (<200); Estimated Glomerular Filt Rate > 60; Glucose Fasting 89 mg/dL (60-99); HDL Cholesterol 51 mg/dL (>40); Iron 62 mcg/dL (30-160); LDL Cholesterol Calculated 112 mg/dL (<100); Percent Iron Saturation 25 % (15-50); Potassium 3.9 mmol/L (3.3-5.1); Sodium 141 mmol/L (135-145); Total Iron Binding Capacity 248 mcg/dL (228-428); Total Protein 6.9 g/dL (6.5-8.0); Triglycerides 69 mg/dL (<150); Unsaturated Iron Binding 186 ug/dL
[2024-11-04 12:06] LABS: Thyroid Stimulating Hormone 1.61 uIU/mL (0.32-4.0); Vitamin D 25-OH Total 60.6 ng/mL (>30)
[2024-11-04 12:10] LABS: Folate 9.1 ng/mL (> or = 4.0); Vitamin B12 845 pg/mL (200-900)
== END 2024-11-04 09:43 | disposition home or self-care (01) ==
LOC: HO.LAB 09:42
PROVIDERS: PCP Internal Medicine; Visit Provider Internal Medicine
DX: Z00.00 Encounter for general adult medical examination without abnormal findings (principal); E53.8 Deficiency of other specified B group vitamins; E55.9 Vitamin D deficiency, unspecified; K59.09 Other constipation; K92.1 Melena
CPT/HCPCS: 80053; 80061; 82306; 82607; 82746; 83540; 84443; 85025

== ENCOUNTER 2024-12-01 22:00 | Outpatient (REF) | payer BC, SELFPAY | END 2024-12-01 22:01 | disposition home or self-care (01) | LOC: HO.LNP 22:00 | PROVIDERS: Visit Provider Internal Medicine | DX: Z13.89 Encounter for screening for other disorder (principal) | CPT/HCPCS: 82530 ==

== ENCOUNTER 2025-03-08 08:49 | Outpatient (AMB) | payer BC, SELFPAY ==
[2025-03-08 08:53] VITALS: BP 110/60; PULSE 74; O2SAT 96; BMI 23.2
--- NOTE | 2025-03-08 08:53 | MHC.PC.OV ---
Vital Signs 03/08/25 08:53 Height 5 ft 4 in Weight 135 lb BMI 23.2 BP 110/60 Blood Pressure Location Lt brachial Position Sitting Pulse 74 Pulse Source Pulse Oximeter Pulse Oximetry (%) 96 Oxygen Delivery Method Room Air Intake Visit Reasons: follow up Framework Developer Required: No Accompanied by: Self / Same As Patient Allergies peanut Allergy (Severe, Verified 03/08/25 09:10) Anaphylaxis shellfish derived Allergy (Severe, Verified 03/08/25 09:10) Skin rash Medication List - Last Reconciled 03/08/25 by Katlin Cates MD albuterol sulfate 2.5 mg (3 mL) inhalation Q4-6H PRN 30 days fexofenadine (Nancy Allergy) 180 mg PO DAILY mometasone-formoterol 50-5 mcg/actuation (Dulera) 2 puffs inhalation Q12H 30 days nebulizers As directed triamcinolone acetonide (Nasacort) 2 sprays intranasal DAILY Tobacco use date assessed: 03/08/25 Dental Screening Dental Screen Date: 03/08/25 Did you have a dental visit in the last 12 months?: Yes Did you have a dental problem in the last 6 months where you did not have access to dental care?: No Was dental information given to patient?: Patient has dentist HPI HPI Comments History of Present Illness Details This is a 49-year-old female with asthma that comes today complaining of abdominal pain associated with bloating, nausea and constipation as well as burping that started February 14 of this year. She went to urgent care February 21 and was diagnosed with acute diverticulitis but no CT scan of the abdomen was done. She was prescribed Cipro and metronidazole but symptoms are still present. She does pass gas and her abdomen is soft. No fever. No blood in the stools. Had colonoscopy 2022. Will order CT scan of the abdomen to rule out acute diverticulitis. Abdomen is tender in multiple places. Asthma well controlled with long-acting inhaler. [facility] Medical History (Updated 03/08/25 @ 09:25 by Katlin Cates MD) Pulmonary nodules Myalgic encephalomyelitis/chronic fatigue syndrome Long COVID Dyspnea Reactive airway disease Hx of malignant fibrous histiocytoma Surgical History H/O breast biopsy History of tooth extraction Hx of colonoscopy History of esophagogastroduodenoscopy (EGD) History of H/O: hysterectomy Family History Mother High blood pressure Father Dementia Mental health disorder Paternal Aunt Lupus Maternal Aunt Breast cancer Social History Housing: Condominium Alcohol intake: current Alcohol intake frequency: holidays/special occasions only Alcohol type: wine Patient Tobacco Use Status: Never used Tobacco e-Cigarette/Vaping Use: Never Used Second Hand Smoke Exposure: No service: No Current occupational status: employed 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 1. Little interest or pleasure in doing things: not at all 2. Feeling down, depressed, or hopeless: not at all 3. Trouble falling or staying asleep, or sleeping too much: not at all 4. Feeling tired or having little energy: several days 5. Poor appetite or overeating: not at all 6. Feeling bad about yourself - or that you are a failure or have let yourself or your family down: not at all 7. Trouble concentrating on things, such as reading the newspaper or watching television: not at all 8. Moving or speaking so slowly that other people could have noticed. Or the opposite - being so fidgety or restless that you have been moving around a lot more than usual: not at all 9. Thoughts that you would be better off or of hurting yourself in some way: not at all Total score: 1 Depression Screening Interpretation: Negative Depression Screening Done: Yes 83148 - PHQ-9 Billing: Yes Source: Developed by Drs. Srinivasa Gage, Sharron Otto, Nazario Andrade and colleagues, with an educational sarahi from [employer]. Thrive Questionnaire Date Thrive assessed: 10/26/24 I am a: Patient What is your living situation today?: I have a steady place to live Within the past 12 months, did the food you bought not last and you didn't have the money to get more?: Never true Within the past 12 months, did you worry whether your food would run out before you got money to buy more?: Never true Do you have trouble paying for medicines?: No Do you have trouble getting transportation to medical appointments?: No Do you have trouble paying your heating and electricity bill?: No Do you have trouble taking care of your child, family member or friend?: No Do you have trouble with day-to-day activities such as bathing, preparing meals, shopping, managing finances, etc.?: No Are you currently unemployed and looking for a job?: No Are you interested in more education?: No Please select the resources that you would like help with: None Currently or been in a relationship where the following occur: No concerns reported THRIVE Score: 0 AUDIT C Alcohol Use Questionnaire (AUDIT-C) 1. How often do you have a drink containing alcohol?: Never 3. How often do you have six or more drinks on one occasion?: Never Total Score: 0 Score Reviewed/Action Taken: No SARAH-7 AMB Questionnaire SARAH-7 Date SARAH - 7 assessed: 10/26/24 Feeling nervous, anxious, or on edge: 0 = Not at all Not being able to stop or control worryin = Not at all Worrying too much about different things: 0 = Not at all Trouble relaxin = Not at all Being so restless that it is hard to sit still: 0 = Not at all Becoming easily annoyed or irritable: 0 = Not at all Feeling afraid as if something awful might happen: 0 = Not at all Total SARAH-7 score (0-4 normal; 5-9 mild; 10-14 moderate; 15-21 severe): 0 Source: Developed by Drs. Srinivasa Gage, Sharron Otto, Nazario Andrade and colleagues, with an educational sarahi from [employer]. SARAH-7 Assessment Billing SARAH-7 Assessment Tool: SARAH-7 Assessment 20689 Review of Systems Const All systems reviewed & are unremarkable except as noted in HPI and below Card Denies chest pain at rest, Denies chest pain with activity, Denies edema, Denies irregular heart rhythm, Denies claudication, Denies dyspnea, Denies dyspnea on exertion, Denies orthopnea, Denies paroxysmal nocturnal dyspnea and Denies slow heart rate Resp Denies cough, Denies dyspnea and Denies dyspnea on exertion GI Denies abdominal pain, Denies change in bowel habits, Denies excessive flatus, Denies nausea and Denies vomiting Physical exam (Primary Care) Vital Signs: Last Vital Signs Pulse 74 03/08/25 08:53 BP 110/60 03/08/25 08:53 Pulse Ox 96 03/08/25 08:53 Oxygen Delivery Method Room Air 03/08/25 08:53 BMI result Body Mass Index 23.2 Tobacco/Smoking Status: Tobacco use Status Tobacco use date assessed 03/08/25 03/08/25 08:58 Patient Tobacco Use Status Never used Tobacco 03/08/25 08:58 e-Cigarette/Vaping Use Never Used 03/08/25 08:58 PHQ-9: PHQ-9 Score PHQ-9: Total score 1 03/08/25 08:58 Depression Screening Interpretation: Negative Thrive Assessment: Date of Thrive Assessment Date Thrive assessed 10/26/24 03/08/25 08:58 Currently or been in a relationship where the following occur: No concerns reported Resp Effort & Inspection: normal respiratory effort Auscultation: clear to auscultation bilaterally Cardio Jugular venous distension: no JVD Rate: regular rate Rhythm: regular rhythm Heart sounds: S1 normal heart sound present and S2 normal heart sound present GI Palpation (GI): Soft to palpation and Tenderness to palpation present (GI) in the epigastrum, in the RLQ, in the LUQ and in the RUQ Extrem General: Yes full ROM Coding Level of Care Code Est Pt Level 3 (45449) Complex EM visit Add On G2211 Diagnoses Abdominal pain R10.9 Asthma J45.909 Additional Codes PHQ-9 - 35373 - PHQ-9 Billing: Yes ([id number]) SARAH-7 Assessment Billing - SARAH-7 Assessment Tool: SARAH-7 Assessment 90897 ([id number]) Time Spent (min) 20 Assessment & Plan Assessment & Plan (1) Abdominal pain: Code(s): R10.9 - Unspecified abdominal pain Category: Medical (2) Asthma: Code(s): J45.909 - Unspecified asthma, uncomplicated Category: Medical Plan CT scan of abdomen and pelvis order as of LS labs. Lipase to rule out pancreatitis. Continue long-acting inhaler. Use rescue inhaler as needed. Referred to gastro. Orders: Orders Complete Blood Count Auto Diff Today R10.9 - Unspecified abdominal pain Lipase Today R10.9 - Unspecified abdominal pain Comprehensive Met. Panel Today R10.9 - Unspecified abdominal pain CT abdomen pelvis wo/w IV con Today R10.9 - Unspecified abdominal pain Referrals Gastroenterology Referral R10.9 - Unspecified abdominal pain
--- OUTSIDE RECORDS SUMMARY | 2025-03-08 10:06 | XMS_ITS | Clinical Summary ---
Author Organization [facility] ity Address [address] [place] [address] Care Team Providers Care Bank Vault Attendant Name Role Phone Unavailable Primary Care Provider [...] Smear 1998 Colorectal Cancer Screening: Colonoscopy 05/24/2022 HIV Screening 05/24/2022 Hepatitis C Screening 05/24/2022 Social Influencers of Health Screening 05/24/2022 Depression Screening 06/21/2024 COVID-19 Vaccine (1 - 2023-2 5 season) 2025 Influenza Vaccine (#1) 2025 RSV Immunization Adult Patie nts (1 - 1-dose 75+ series) 2052 HIB Vaccines Aged Out No longer eligi [...] 5 Years) and At-Risk Patients (6 to 49 Years) Aged Out No longer eligible b ased on patient's age to complete this topic RSV Immunization Patients Un vani 20 months Aged Out No longer eligible b ased on patient's age to complete this topic Varicella Vaccines Aged Out No longer eligible based on patient's age to complete this topic
== END 2025-03-08 09:28 | disposition home or self-care (01) ==
LOC: HO.HMCH 08:50
PROVIDERS: PCP Internal Medicine; Visit Provider Internal Medicine
DX: R10.9 Unspecified abdominal pain (principal); J45.909 Unspecified asthma, uncomplicated

== ENCOUNTER 2025-03-08 08:49 | Outpatient (REF) | payer BC, SELFPAY ==
[2025-03-08 10:10] LABS: MANUAL DIFF FLAG NO
[2025-03-08 10:27] LABS: Hematocrit 39.3 % (37.0-47.0); Hemoglobin 13.2 g/dl (12.0-16.0); Imm Gran Abs Auto 0.02 X10*3/uL (0.00-0.03); Imm Gran Pct Auto 0.4 % (0.0-0.4); Lymphocytes Absolute Auto 1.5 X10*3/uL (1.2-4.9); Mean Corpuscular HGB Conc 33.6 g/dl (31.0-35.0); Mean Corpuscular Hemoglobin 30.3 pg (27.0-33.0); Mean Corpuscular Volume 90.1 fL (80.0-98.0); NRBC Abs Auto 0.000 X10*3/uL (0.0-0.012); NRBC Pct Auto 0.0 /100WBC (0.0-0.2); Platelet Count 328 X10*3/uL (160-400); Red Blood Count 4.36 X10*6/uL (4.20-5.50); White Blood Count 5.3 X10*3/uL (4.8-10.8)
[2025-03-08 11:20] LABS: Alanine Aminotransferase 32 U/L (0-31); Albumin Level 4.4 g/dL (3.5-5.0); Alkaline Phosphatase 61 U/L (39-117); Anion Gap 7 (12-20); Aspartate Amino Transferase 36 U/L (5-31); Blood Urea Nitrogen 11 mg/dL (9-16); Calcium 9.0 mg/dL (8.4-10.2); Carbon Dioxide 31 mmol/L (22-29); Chloride 107 mmol/L (96-108); Estimated Glomerular Filt Rate > 60; Lipase 28 U/L (8-78); Potassium 4.3 mmol/L (3.3-5.1); Sodium 141 mmol/L (135-145); Total Protein 6.9 g/dL (6.5-8.0)
== END 2025-03-08 08:50 | disposition home or self-care (01) ==
LOC: HO.LAB 08:49
PROVIDERS: PCP Internal Medicine; Visit Provider Internal Medicine
DX: R10.9 Unspecified abdominal pain (principal); J45.909 Unspecified asthma, uncomplicated
CPT/HCPCS: 36415; 80053; 83690; 85025; 96127

== ENCOUNTER 2025-03-21 09:41 | Outpatient (REF) | payer BC, SELFPAY ==
--- OUTSIDE RECORDS SUMMARY | 2025-03-22 13:57 | XMS_ITS | Clinical Summary ---
Author Organization [facility] ity Address [address] [place] [address] Care Team Providers Care Injection Molder Name Role Phone Unavailable Primary Care Provider [...]
== END 2025-03-21 09:42 | disposition home or self-care (01) ==
LOC: HO.LNP 09:41
PROVIDERS: PCP Internal Medicine; Visit Provider Nurse Practitioner Family
DX: R10.13 Epigastric pain (principal); K59.09 Other constipation; K52.9 Noninfective gastroenteritis and colitis, unspecified; K57.90 Diverticulosis of intestine, part unspecified, without perforation or abscess without bleeding; R79.89 Other specified abnormal findings of blood chemistry; K29.70 Gastritis, unspecified, without bleeding; R14.0 Abdominal distension (gaseous); Z79.899 Other long term (current) drug therapy
CPT/HCPCS: 83013

== ENCOUNTER 2025-03-21 09:41 | Outpatient (AMB) | payer BC, SELFPAY ==
--- NOTE | 2025-03-21 09:43 | A.OFFVIS_ITS ---
Vital Signs 03/21/25 09:44 Height 5 ft 4 in Weight 135 lb BMI 23.2 BP 90/59 L Blood Pressure Location Lt brachial Position Sitting Pulse 76 Pulse Oximetry (%) 98 Oxygen Delivery Method Room Air Intake Visit Reasons: abdominal pain Intake Note: Patient complex follow up for abdominal pain /Nehal marysol 04/01/2023 Patient cc: abdominal bloating, acid reflex on and off, constipation with some blood in the pass, and change of appetite. Behavioral Modification Assistant Required: No Accompanied by: Self / Same As Patient Allergies peanut Allergy (Severe, Verified 03/21/25 09:43) Anaphylaxis shellfish derived Allergy (Severe, Verified 03/21/25 09:43) Skin rash Medication List - Last Reconciled 03/21/25 by Carly Atwood CNP acetaminophen (Tylenol) 650 mg PO Q6H PRN albuterol sulfate 2.5 mg (3 mL) inhalation Q4-6H PRN 30 days fexofenadine (Nancy Allergy) 180 mg PO DAILY mometasone-formoterol 50-5 mcg/actuation (Dulera) 2 puffs inhalation Q12H 30 days nebulizers As directed HPI HPI abdominal pain: Details: Patient is a 49-year-old female with PMH of asthma. Referred by PCP for pre colonoscopy screening and further evaluation of blood in stools. history of intermittent hematochezia noted throughout the current year. She describes symptom onset worsening in late January, beginning with notable nausea, bloating, and frequent burping, prompting urgent care visit on 02-21; empiric cipro and metronidazole were initiated for presumed diverticulitis based on her history of known diverticulosis (diagnosed via colonoscopy 2 years prior), but yielded minimal improvement beyond mild reduction in bloating. Constipation is an ongoing issue, with bowel movements occurring daily but characterized by small, hard stools; she reports <5 days of regular bowel activity in the past month. Bloating is persistent and bothersome; nausea worsened during late January but is less severe currently. Blood in stool occurs intermittently and appears correlated to periods of constipation She denies heartburn, odynophagia, abdominal pain, or weight changes. Dietary attempts to avoid symptom triggers have included low intake of breads, greasy foods; diet features avocado, eggs, oatmeal, salad. She takes daily probiotics and has attempted magnesium citrate and various OTC agents for GI relief; minimal benefit noted. Notable PMH includes gastritis (diagnosed 2 years ago via EGD), hiatal hernia, rectal mild colitis (per 2022 colonoscopy), and stable asthma. Recent labs revealed mild elevation of LFTs (pending repeat in fasting state for confirmation). Family hx significant for maternal constipation. No personal or family hx of GI malignancy. Patient denies: fever/chills, vomiting , appetite changes, pyrosis, regurgitation,dysphasia, unintentional wt loss, ab pain. Social hx: -denies ETOH use -denies recreational drug use -non-smoker - family hx as below -denies personal hx of CA -tolerated anesthesia in the past without difficulty. PFS Medical History (Updated 03/22/25 @ 17:09 by Carly Atwood CNP) Constipation Elevated LFTs Pulmonary nodules Myalgic encephalomyelitis/chronic fatigue syndrome Long COVID Dyspnea Reactive airway disease Hx of malignant fibrous histiocytoma Surgical History H/O breast biopsy History of tooth extraction Hx of colonoscopy History of esophagogastroduodenoscopy (EGD) History of H/O: hysterectomy Family History Mother High blood pressure Father Dementia Mental health disorder Paternal Aunt Lupus Maternal Aunt Breast cancer Social History Housing: Condominium Alcohol intake: current Alcohol intake frequency: holidays/special occasions only Alcohol type: wine Patient Tobacco Use Status: Never used Tobacco e-Cigarette/Vaping Use: Never Used Second Hand Smoke Exposure: No service: No Current occupational status: employed 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 Current occupational exposures/hazards: No Cognitive needs: No Hearing needs: No Vision needs: No Female Reproductive History Menstrual Age of Menarche: 10 Review of Systems Const Reports as per HPI ENT Reports as per HPI Card Reports as per HPI Resp Reports as per HPI GI Reports as per HPI Reports as per HPI Physical Exam Vital Signs: Last Vital Signs Pulse 76 03/21/25 09:44 BP 90/59 L 03/21/25 09:44 Pulse Ox 98 03/21/25 09:44 Oxygen Delivery Method Room Air 03/21/25 09:44 BMI result Body Mass Index 23.2 Const General: healthy appearing, no acute distress and well developed Nutritional Appearance: average body habitus Orientation/consciousness: patient oriented x3 HEENT Head: Yes normal to inspection, Yes normocephalic and Yes atraumatic Face and sinus: Yes normal facial exam Eyes General: appearance normal, both eyes and all related structures Neck Neck: Yes normal visual inspection Resp Effort & Inspection: normal respiratory effort, able to speak in complete sentences, no tracheal deviation and symmetric chest movement Cardio Jugular venous distension: no JVD GI Inspection: Yes normal to inspection and No distended Palpation (GI): Soft to palpation, not firm, nontender and No hepatosplenomegaly present Auscultation: normal bowel sounds Neuro General: patient oriented x3 Gait exam (Neuro): Normal gait present Psych Appearance: grossly normal Mental Status: mental status grossly normal Speech and movement: Normal speech and movement present Affect: normal affect Attitude: cooperative Thought process: Normal thought process present Thought content: Normal thought content present Insight: Good insight present (Psych) Judgement: Good judgement present (Psych) Results Reviewed Results Reviewed: Operative Note Date of Service: 03/19/23 Narrative: FLEXIBLE TRANSORAL UPPER GASTROINTESTINAL ENDOSCOPY WITH BIOPSIES AND COLONOSCOPY TILL CECUM WITH BIOPSIES Pre-op diagnosis: Colon cancer screening, chronic constipation, dyspepsia, abdominal bloating Post-op diagnosis: Gastritis, small hiatal hernia, diverticulosis Endoscopist: Shantel Castillo MD Anesthesia: MAC UPPER ENDOSCOPY Consent: Indications for the procedure and potential complications of bleeding, perforation, reaction to medications and missed diagnosis were discussed with the patient and informed consent was obtained. Instrument: Olympus GIF H 190 mid size upper endoscope Monitoring: Vital signs and clinical assessment, continuous EKG monitoring, Pulse oximetry, Carbon Dioxide monitoring and blood pressure monitoring were done throughout the procedure. Procedure: The patient was placed in the left lateral decubitis position and pre-procedure medications were administered and a bite block was placed. The endoscope was inserted into the mouth and advanced under direct vision to the third part of duodenum. A careful inspection was made as the upper endoscope was withdrawn including a retroflexed examination of the proximal stomach; Findings and interventions are described below. Findings: Larynx: Normal Esophagus: GE junction at 34 cms, small hiatal hernia 34 to 36 cms. No esophagitis or Pelaez's. Stomach: Mild gastric erythema. Biopsies were obtained. Grade 2 flap valve on retroflexed examination of the cardia.. Duodenum: Normal bulb and descending duodenum Biopsies were obtained from 3rd part of the duodenum to check for celiac sprue. Intervention: Biopsies as noted above COLONOSCOPY PROCEDURE NOTE Consent: Indications for the procedure and potential complications of bleeding, perforation, reaction to medications and missed diagnosis were discussed with the patient and informed consent was obtained. Instrument: Olympus PCF H 190 L variable stiffness pediatric colonoscope Monitoring: Vital signs and clinical assessment, intermittent blood pressure monitoring, continuous EKG monitoring, Pulse oximetry and Carbon Dioxide monitoring were done throughout the procedure. Colon withdrawl time was 13 minutes. Procedure: The patient was placed in the left lateral decubitis position and pre-procedure medications were administered. After a digital rectal examination of the ano-rectum, the video colonoscope was inserted into the rectum and advanced through the colon to the cecum. The colonoscope was slowly withdrawn in a retrograde panoramic fashion and the colon mucosa was carefully examined including a retroflexed view of the rectum. Findings and interventions are described below. Procedure Difficulty: Colon was long and tortuous and there was some loop formation. No maneuvers were required Findings: Terminal Ileum: Not evaluated Cecum: Normal Ascending Colon: Normal Transverse Colon: Normal Descending Colon: Normal Sigmoid Colon: Moderate diverticulosis Rectum: Patchy erythema in the distal rectum - biopsies obtained to check for proctitis Ano-rectum: Normal Colon preparation: Good Impression and Post Procedure Diagnosis: Endoscopy Findings: ESOPHAGUS: Small hiatal hernia STOMACH: Gastritis DUODENUM: Normal - biopsied to check for celiac sprue Colonoscopy Findings: No polyps were detected. Patchy erythema in the distal rectum - biopsies obtained to check for proctitis Moderate diverticulosis seen in the sigmoid colon Plan: Await pathology results Patient has an appointment on 04/01/23 in the GI Clinic with QUIN Simpson. Repeat Colonoscopy in 10 years. PATHOLOGY: Collected: 03/19/23 Location: [facility] Received: 03/22/23 Diagnosis A. Small bowel, biopsy: Small bowel mucosa within normal limits; preserved villous architecture and no increased intraepithelial lymphocytes seen. B. Stomach, antrum, biopsy: Gastric antral mucosa with mild chronic inactive gastritis; negative for Helicobacter pylori, intestinal metaplasia and dysplasia. C. Rectum, biopsy: Mildly active colitis with focal surface erosion (non- specific). Clinical History Pre-Op Dx: Colon cancer screening, dyspepsia, bloating, constipation Post-Op Dx: Gastritis, diverticulosis Assessment & Plan Assessment & Plan (1) Dyspepsia: Comment: 03/19/23 EGD-Gastritis, small hiatal hernia Code(s): R10.13 - Epigastric pain Category: Medical Plan: Persistent belching, bloating and upper GI discomfort in context of past EGD findings (gastritis, hiatal hernia); incomplete response to empiric antimicrobials. Additional Testing: -H. pylori urea breath test ordered and performed today (no PPI) -upper GI series ordered to assess for mucosal changes/tissue injury/ulceration?non-invasive, pending scheduling. Medication Management: Patient using Tums prn; continue PRN as needed. Nausene prn for nausea. Consider PPI or H2 denisha pending workup results and symptom evolution. Lifestyle Recommendations: Continue to avoid dietary triggers; follow low- FODMAP, eat small/frequent meals; avoid late meals and irritants (caffeine, ch ocolate, spicy/acidic foods). Follow-Up: Results to be reviewed via patient portal as they become available. (2) Constipation: Comment: 03/19/23 colonoscopy complete with good prep-No polyps were detected, Moderate diverticulosis ( sigmoid) Code(s): K59.00 - Constipation, unspecified Category: Medical Qualifiers: Constipation type: unspecified constipation type Qualified Code(s): K59.00 - Constipation, unspecified Plan: Chronic constipation with evidence of rectal colitis and diverticulosis; blood in stool likely secondary to mucosal irritation from hard stools and/or mild colitis. Additional Testing: -Complete pending abdominopelvic CT with contrast (insurance authorization in process) -repeat colonoscopy to be considered depending on new findings -lab panel (CBC, repeat LFTs, as already ordered/planned). Medication Management: Initiate daily Miralax (PEG) as first-line osmotic laxative. Avoid magnesium citrate unless directed; continue probiotics if helpful. Avoid NSAIDs. Lifestyle Recommendations: Optimize dietary fiber as tolerated (provide low- FODMAP guidance); increase fluids (water); maintain regular activity. Review food triggers using provided handout. Follow-Up: Reassess in 3 months or sooner if significant symptom changes or abnormal findings. Portal communication for new symptoms. (3) Elevated LFTs: Code(s): R79.89 - Other specified abnormal findings of blood chemistry Category: Medical Plan: Isolated mild LFT elevation in recent labs; unclear etiology; possible false positive if non-fasting or related to dietary factors, Rx, or fatty liver. Additional Testing: Repeat LFTs after at least 12h fasting; further workup if persistently elevated or new symptoms. Medication Management: None indicated at present; avoid hepatotoxic agents. Lifestyle Recommendations: Maintain healthy diet, avoid alcohol and hepatotoxic substances (none reported). Follow-Up: Review results when available; further intervention as indicated. Plan Follow-up 3 months or sooner as needed Time: I spent a total of 50 minutes on the date of encounter which includes: Preparing to see the patient (reviewed previous documentation, test results and medical history) Performing a medically appropriate exam and/or evaluation Ordering medications, tests, and procedures Documenting clinical information in the health record Orders: Orders FL upper GI small bowel 03/21/25 K29.70 - Gastritis, unspecified, without bleeding, R10.13 - Epigastric pain Comprehensive [place]. Panel Fast 03/21/25 R79.89 - Other specified abnormal findings of blood chemistry H Pylori Breath Test Today R10.9 - Unspecified abdominal pain, R14.0 - Abdominal distension (gaseous) Medications: New polyethylene glycol 3350 (Miralax) Take 17G (one cap full) daily with 8oz of water 17 grams PO DAILY 510 grams 2RF constipation 30 days omeprazole Take one tablet daily. Best taken on an empty, 30 minutes before eating. 20 mg PO DAILY 90 caps 1RF Coding Level of Care Code New Pt New Pt Level 5 (19131) Patient Type New Diagnoses Dyspepsia R10.13 Constipation, unspecified constipation type K59.00 Constipation type: unspecified constipation type Elevated LFTs R79.89
[2025-03-21 09:44] VITALS: BP 90/59; PULSE 76; O2SAT 98; BMI 23.2
--- OUTSIDE RECORDS SUMMARY | 2025-03-21 10:34 | XMS_ITS | Clinical Summary ---
Author Organization [facility] ity Address [address] [place] [address] Care Team Providers Care High Risk Case Manager Name Role Phone Unavailable Primary Care Provider [...] Last Done Comments Breast Cancer Screening 1977 Colorectal Cancer Screening: Colonoscopy 1977 DTaP,Tdap,and Td Vaccines (1 - Tdap) 1996 Hepatitis B Vaccines (1 of 3 - 19+ 3-dose series) 1996 Cervical Cancer Screening: P ap Smear 1998 HIV Screening 05/24/2022 Hepatitis C Screening 05/24/2022 [...]
== END 2025-03-21 11:30 | disposition home or self-care (01) ==
LOC: HO.HGI 09:42
PROVIDERS: PCP Internal Medicine; Visit Provider Nurse Practitioner Family
DX: R10.13 Epigastric pain (principal); K59.00 Constipation, unspecified; R74.01 Elevation of levels of liver transaminase levels
CPT/HCPCS: 99204

== ENCOUNTER 2025-03-30 07:05 | Outpatient (REF) | payer BC, SELFPAY ==
--- NOTE | ~2025-03-30 | CT_ITS ---
EXAMINATION: CT ABDOMEN PELVIS WITH IV CONTRAST HISTORY: R10.9 - Unspecified abdominal pain COMPARISON: Correlation is made with the upper abdominal images from a chest CT dated 08/27/2022. TECHNIQUE: CT scan of the abdomen and pelvis was performed following administration of 85 mL Omnipaque 350 using standard departmental protocol. Coronal and sagittal reformatted images were generated and reviewed. The patient received oral contrast material. This CT exam was performed with one or more of the following dose reduction techniques: automated exposure control, adjustment of the mA and/or kV according to patient size, use of iterative reconstruction technique. DLP: 289 mGy-cm FINDINGS: LOWER CHEST: The visualized lung bases are clear. There is no pleural effusion. CARDIOVASCULATURE: The heart is normal in size. There is no pericardial effusion. LIVER: The liver is normal in size and contour. There is a 1.2 cm hypodensity in the left lobe which is faintly visualized on the prior study. The hepatic and portal veins are patent. GALLBLADDER / BILE DUCTS: The gallbladder is unremarkable. There is no intra or extrahepatic biliary ductal dilatation. SPLEEN: The spleen is normal in size. No focal splenic lesion is identified. PANCREAS: The pancreas is unremarkable in appearance. ADRENAL GLANDS: Within normal limits. KIDNEYS/RETROPERITONEUM: No renal calculi are identified. There is no hydronephrosis. No renal masses are identified. LYMPH NODES: No abdominal or pelvic lymphadenopathy. VASCULATURE: The abdominal aorta is normal in caliber. MESENTERY/PERITONEUM: No free fluid. No masses. There is no free intraperitoneal gas. STOMACH: The stomach is collapsed, limiting evaluation. SMALL BOWEL: The small bowel is normal in caliber. COLON: There is a large amount of stool in the descending and sigmoid colon. No significant diverticulosis or evidence of diverticulitis. APPENDIX: Normal. URINARY BLADDER/PELVIC ORGANS: The urinary bladder is unremarkable. The patient is status post hysterectomy. BONES / SOFT TISSUES: No suspicious bony or soft tissue abnormalities. CT/CT abdomen pelvis w IV con IMPRESSION: 1. Large amount of stool in the descending and sigmoid colon. No CT evidence of diverticulitis. 2. 1.2 cm hypodensity in the liver which is difficult to characterize on this single phase examination, but is stable since October 27, 2022 and therefore likely benign. Electronically signed by: Srinivasa Berry MD 03/30/2025 10:09 AM EDT
[2025-03-30] MEDS: Barium Sulfate Oral (Berry) 450 ML ORAL.SUSP 900 ML PO (09:59)
[2025-03-30] MEDS: iohexoL 350 MG/ML 100 ML INFUS..BTL IV (10:02)
== END 2025-03-30 07:06 | disposition home or self-care (01) ==
LOC: HO.CT 07:05
PROVIDERS: PCP Internal Medicine; Visit Provider Internal Medicine
DX: R10.9 Unspecified abdominal pain (principal)
CPT/HCPCS: 74177; Q9967

== ENCOUNTER → 2025-03-30 07:07 | Outpatient (BNV) | payer BC, SELFPAY | PROVIDERS: PCP Internal Medicine; Visit Provider Radiology Diagnostic Radiology | DX: R10.9 Unspecified abdominal pain (principal); K59.00 Constipation, unspecified | CPT/HCPCS: 74177 ==

== ENCOUNTER → 2025-04-18 14:30 | Outpatient (BNV) | payer BC, SELFPAY | PROVIDERS: PCP Internal Medicine; Visit Provider Internal Medicine | DX: R92.8 Other abnormal and inconclusive findings on diagnostic imaging of breast (principal) | CPT/HCPCS: 77062; 77066 ==

== ENCOUNTER 2025-04-18 14:35 | Outpatient (REF) | payer BC, SELFPAY ==
--- NOTE | ~2025-04-18 | MM_ITS ---
EXAMINATION: MM DIAGNOSTIC DIGITAL BREAST TOMOSYNTHESIS, BILATERAL CLINICAL INFORMATION: History of left breast irritated core needle biopsy upper outer breast January 2024 with benign pathology. COMPARISON: Mammography: Comparison is made with relevant prior exams. TECHNIQUE: Digital breast mammography with tomosynthesis is performed in both the craniocaudal and mediolateral oblique views along with computer-aided detection (CAD). FINDINGS: The breasts are extremely dense, which lowers the sensitivity of mammography. Left: Focal asymmetry in the upper outer quadrant with adjacent marker clip is slightly more conspicuous compared with priors. No suspicious calcifications or other abnormal findings. Marker clip in the lower inner breast from previous benign needle core biopsy. Right: Reason area of architectural distortion with focal asymmetry in the lower inner breast best seen on cc view image /. There are 2-3 areas of architectural distortion in the central to upper breast localizing laterally and tamanna synthesis MLO view , CC view /. No suspicious calcifications. Results are provided to the patient at time of visit by the technologist. MM/MM tomosynthesis diagnostic BI IMPRESSION: Left: Focal asymmetry in the upper outer quadrant with adjacent marker clip from benign needle core biopsy is slightly more conspicuous compared with priors. Ultrasound evaluation is recommended at this time to further evaluate. Right: Areas of focal asymmetry with distortion in the central to upper outer breast middle and posterior depth and a separate area of architectural distortion in the lower inner breast best seen on cc view. Ultrasound evaluation is recommended at this time. Breast MRI with contrast could be helpful to further evaluate and extremely dense breast tissue. Breast mild need to be ordered by the patient's providing clinician. Patient declined ultrasound at this time although it is recommended additional imaging is recommended as these areas are suspicious. ASSESSMENT: BI-RADS Category 0: Incomplete - Need additional Imaging Evaluation RECOMMENDATION: Additional Imaging required Findings and recommendations were discussed with the patients PCP Dr. Aile Orozco Electronically signed by: Cathleen Quinn DO 04/19/2025 10:49 AM EDT
--- OUTSIDE RECORDS SUMMARY | 2025-04-18 18:56 | XMS_ITS | Clinical Summary ---
Author Organization [facility] ity Address [address] [place] [address] Care Team Providers Care Brinell Tester Name Role Phone Unavailable Primary Care Provider [...]
== END 2025-04-18 14:36 | disposition home or self-care (01) ==
LOC: HO.MAMMO 14:35
PROVIDERS: PCP Internal Medicine; Visit Provider Internal Medicine
DX: R92.8 Other abnormal and inconclusive findings on diagnostic imaging of breast (principal)
CPT/HCPCS: 77062; 77066

== ENCOUNTER 2025-05-26 10:18 | Outpatient (REF) | payer BC, SELFPAY ==
--- OUTSIDE RECORDS SUMMARY | 2025-05-26 10:22 | XMS_ITS | Clinical Summary ---
Author Organization [facility] ity Address [address] [place] [address] Care Team Providers Care Consumer Banker Name Role Phone Unavailable Primary Care Provider [...] Depression Screening 06/21/2024 COVID-19 Vaccine (1 - 2024-2 6 season) 2025 Influenza Vaccine (#1) 2025 RSV [...]
[2025-05-26 12:23] LABS: Alanine Aminotransferase 15 U/L (0-31); Albumin Level 4.3 g/dL (3.5-5.0); Alkaline Phosphatase 62 U/L (39-117); Anion Gap 11 (12-20); Aspartate Amino Transferase 19 U/L (5-31); Blood Urea Nitrogen 12 mg/dL (9-16); Calcium 8.7 mg/dL (8.4-10.2); Carbon Dioxide 28 mmol/L (22-29); Chloride 107 mmol/L (96-108); Estimated Glomerular Filt Rate > 60; Potassium 4.2 mmol/L (3.3-5.1); Sodium 142 mmol/L (135-145); Total Protein 7.0 g/dL (6.5-8.0)
== END 2025-05-26 10:19 | disposition home or self-care (01) ==
LOC: HO.LAB 10:18
PROVIDERS: Absent Provider Internal Medicine; PCP Internal Medicine; Visit Provider Nurse Practitioner Family
DX: R74.01 Elevation of levels of liver transaminase levels (principal); R79.89 Other specified abnormal findings of blood chemistry
CPT/HCPCS: 36415; 80053; 80076; 82248